=== PATIENT | female | born 1980 | race Caucasian/White ===

== ENCOUNTER 2023-10-15 21:37 | Outpatient (REF) | payer BC, SELFPAY ==
[2023-10-18 17:09] LABS: Age Gdln ACOG Testing Note (.); HPV Aptima Negative (Negative); IGP, Aptima HPV, rfx 16/18,45 Note (.)
== END 2023-10-15 21:38 | disposition home or self-care (01) ==
LOC: LAB 21:37
PROVIDERS: PCP Obstetrics & Gynecology; Visit Provider Obstetrics & Gynecology
DX: Z01.419 Encounter for gynecological examination (general) (routine) without abnormal findings (principal)
CPT/HCPCS: 87624; G0145

== ENCOUNTER 2023-10-20 10:01 | Outpatient (OUT) | payer BC, SELFPAY ==
--- NOTE | 2023-10-20 10:08 | US_ITS ---
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 Transvaginal imaging was performed. FINDINGS: UTERUS: The uterus measures 8.6 x 4.7 x 3.8 cm. There is no evidence of focal uterine masses or other significant abnormalities. There was noted to be an anterior myometrial mass on the previous exam of 10/21/2022 but this is not visualized today. The cervix shows no evidence of abnormalities. The endometrium measures 5 mm in thickness. The endometrium is uniform in thickness and echogenicity. ADNEXA: The right ovary measures 2.3 x 2.1 x 1.9 cm. The left ovary is not visualized at the time of this exam. There is no evidence of ovarian or adnexal masses. There is no other evidence of significant adnexal abnormalities. Normal vascular flow is identified of the visualized right ovary FLUID: There is no evidence of an abnormal amount of free fluid within the pelvis. ASSESSMENT: This pelvic ultrasound exam shows no evidence of significant abnormalities. It is noted that the left ovary cannot be visualized at the time of this exam. Electronically authenticated by: JOSE HILTON Date: 10/20/2023 12:45
== END 2023-10-20 10:02 | disposition home or self-care (01) ==
LOC: US 10:01
PROVIDERS: PCP Obstetrics & Gynecology; Visit Provider Obstetrics & Gynecology
DX: N80.9 Endometriosis, unspecified (principal); D25.9 Leiomyoma of uterus, unspecified; N92.0 Excessive and frequent menstruation with regular cycle
CPT/HCPCS: 76830; 76856

== ENCOUNTER 2024-06-27 10:04 | Outpatient (OUT) | payer BC, SELFPAY ==
--- OUTSIDE RECORDS SUMMARY | 2024-06-27 10:23 | XMS_ITS | CCD ---
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[employer] - [place]ACH[place] Primary Care Provider KILEY ., DR TORRES Attending Unavailable KILEY ., DR TORRES Admitting Unavailable REQUEST, DR NAIK LISTED Primary Care Unavaila ble REQUEST, DR NAIK LISTED Primary Care Unavaila ble KILEY ., DR TORRES Admitting Unavailable KILEY ., DR TORRES Attending Unavailable KILEY ., DR TORRES Consulting Unavailable MCKENNA II, KAPIL Consulting Unavailable ROMINA FUENTES Consulting Unavailable KILEY ., DR TORRES Attending Unavailable KILEY ., DR TORRES Admitting Unavailable OKAY, DR GUILLERMO Moreno Consulting Unavailable REQUEST, DR NAIK LISTED Primary Care Unavaila ble KILEY ., DR TORRES Consulting Unavailable RAHUL DAMON Referring Unavailable MIGHTKALEIGH Primary Care Unavailable MIGHT, KALEIGH Ramírez Primary Care Unavailable RAHUL DAMON Referring Unavailable Unavailable Primary Care Provider Unavaildieter e MELISSA CAO Attending Unavailable ANA DOOLEY Attending Unavailable MELISSA CAO Attending Unavailable Allergies Allergy Classification Reported Allergen(s) Allergy Type Date of Onset Reaction(s) Facility (2 sources) Alcaftadine Propensity to adverse reactions 3 Swelling [facility] Work Phone: Medications Current Medications Medication Drug Class(es) Dates Sig (Normalized) Sig (Original) ALPRAZolam 0.25 mg oral tablet (8 sources) Benzodiazepine Start: 05-18-2023 take 1 tablet by mouth once daily as needed ALPRAZolam (Xanax) 0.25 MG tablet TAKE 1 TABLET BY MOUTH NIGHTLY NEEDED FOR SLEEP FOR UP TO 90 DAYS. MAX DAILY AMOUNT: 0.25 MG 05/18/2023 Active Start: 08-08-2017 End: 02-12-2022 take 1 tablet by mouth once daily as needed for anxiety ALPRAZolam (XANAX) 0.25 MG tablet Indications: KB (generalized anxiety disorder) Take 1 tablet by mouth nightly as needed for Anxiety for up to 90 days. 90 tablet 0 11/14/2021 02/12/2022 Active aluminum chloride 200 mg/ml topical solution (5 sources) Start: 11-16-2019 aluminum chlor dixie (DRYSOL) 20 % external solution Indications: Weight gain Apply topically nightly. 3 Bottle 4 11/16/2019 Active Start: 09-08-2019 aluminum chlor dixie (DRYSOL) 20 % external solution Indications: Weight gain Apply topically nightly. 3 Bottle 4 09/08/2019 Active Start: 06-20-2016 aluminum chlor dixie (DRYSOL) 20 % external solution azithromycin 250 mg oral tablet (1 source) Macrolide Antimicrobial Start: 07-07-2021 End: 07-12-2021 azithromycin (ZITHROMAX) 250 MG tablet Indications: Bronchitis Take 1 tablet by mouth See Admin Instructions for 5 days 500mg on day 1 followed by 250mg on days 2 - 5 6 tablet 0 07/07/2021 07/12/2021 Active benzonatate 200 mg oral capsule (1 source) Non-narcotic Antitussive Start: 07-07-2021 End: 07-14-2021 take 1 capsule by mouth three times daily as needed for cough benzonatate (TESSALON) 200 MG capsule Take 1 capsule by mouth 3 times daily as needed for Cough 30 capsule 0 07/07/2021 07/14/2021 Active cetirizine hydrochloride 10 mg oral tablet (3 sources) Histamine-1 Receptor Antagonist Start: 07-06-2021 cetirizine (ZYRTEC) 10 MG tablet clobetasol propionate 0.5 mg/ml topical solution (4 sources) Corticosteroid Start: 10-16-2023 clobetasol (Temovate) 0.05 % ointment Indications: Dyshidrotic eczema Apply to hands up to twice a day when flared, do not use one the face, groin, or underarms, 90 day supply 60 g 3 10/16/2023 Active Start: 10-16-2023 clobetasol (Te movate) 0.05 % external solution Indications: Other seborrheic dermatitis Apply to scalp up to twice a day when flared, do not use one the face, groin, or underarms, 90 day supply 150 mL 3 10/16/2023 Active Coenzyme Q10 (CO Q 10 PO) (2 sources) Coenzyme Q10 (CO Q 10 PO) drospirenone 3 mg / ethinyl estradiol 0.03 mg oral tablet (6 sources) Progestin, Estrogen Start: take 1 tablet by mouth once daily drospirenone-ethinyl estradiol (GAUDENCIO 28) 3-0.03 MG TABS Indications: Menorrhagia with regular cycle , Secondary dysmenorrhea Take 1 tablet by mouth daily 3 packet 4 10/12/2021 Active Start: 09-09-2020 take 1 tablet by mariel th once daily drospirenone-ethinyl estradiol (GAUDENCIO 28) 3-0.03 MG TABS Indications: Menorrhagia with regular cycle , Secondary dysmenorrhea Take 1 tablet by mouth daily 3 packet 4 09/09/2020 Active Start: 09-08-2019 take 1 tablet by mariel th once daily drospirenone-ethinyl estradiol (GAUDENCIO 28) 3-0.03 MG TABS Indications: Menorrhagia with regular cycle , Secondary dysmenorrhea Take 1 tablet by mouth daily 3 packet 4 09/08/2019 Active FLUoxetine 20 mg oral capsule (2 sources) Serotonin Reuptake Inhibitor take 1 capsule by mouth once daily FLUoxetine (PROzac) 20 MG capsule Take 20 mg by mouth Daily Active 12 hr guaiFENesin 600 mg extended release oral tablet (1 source) Start: 2020 End: 2020 take 2 tablets by mouth twice daily guaiFENesin (MUCINEX) 600 MG extended release tablet Take 2 tablets by mouth 2 times daily for 10 days 40 tablet 0 07/07/2021 07/17/2021 Active hydroCHLOROthiazide 25 mg / triamterene 37.5 mg oral tablet (4 sources) Potassium-sparing Diuretic, Thiazide Diuretic Start: 2018 triamterene-hydrochl orothiazide (MAXZIDE-25) 37.5-25 MG per tablet TAKE ONE-HALF (1/2) TABLET DAILY 45 tablet 4 07/14/2019 Active hydrocortisone 25 mg/ml topical cream (2 sources) Corticosteroid Start: 2023 hydrocortisone 2.5 % cream Indications: Other seborrheic dermatitis Apply to face bid prn for flares, hold when clear/90 day supply 90 g 3 10/16/2023 Active ipratropium bromide 0.021 mg/actuat metered dose nasal spray (1 source) Anticholinergic Start: 2020 ipratropium (ATROVENT) 0.03 % nasal spray ketoconazole 20 mg/ml topical cream (2 sources) Azole Antifungal Start: 2023 ketoconazole (NIZOral) 2 % cream Indications: Tinea versicolor Apply to rash on chest BID until clear then prn for flares/90 day supply 180 g 3 10/16/2023 Active MAGNESIUM-ZINC PO (2 sources) MAGNESIUM-ZINC P O Take by mouth 0 Active montelukast 10 mg oral tablet (3 sources) Leukotriene Receptor Antagonist Start: 2023 take 1 tablet by mouth at bedtime montelukast (Singulair) 10 MG tablet Take 10 mg by mouth at bedtime 05/13/2024 Active Start: 11-14-2021 take 1 tablet by mariel th once daily montelukast (SINGULAIR) 10 MG tablet Indications: Chronic allergic rhinitis Take 1 tablet by mouth nightly 90 tablet 3 11/14/2021 Active Multiple Vitamin-Folic Acid tablet (2 sources) Multiple Vitamin -Folic Acid tablet Multiple Vitamin Active Multiple Vitamins-Minerals (MULTIVITAMIN PO) (6 sources) Multiple Vitamins-Minerals (MULTIVITAMIN PO) Indications: Routine gynecological examination Take by mouth. 0 Active sertraline 50 mg oral tablet (6 sources) Serotonin Reuptake Inhibitor Start: 09-22-2022 sertraline (ZOLOFT) 50 MG tablet Indications: Encounter for gynecological examination without abnormal finding , Mild depression TAKE 1 TABLET DAILY 90 tablet 3 09/22/2022 Active Start: 10-12-2021 take 1 tablet by mariel th once daily for depression sertraline (ZOLOFT) 50 MG tablet Indications: Encounter for gynecological examination without abnormal finding , Mild depression (HCC) Take 1 tablet orally daily 90 tablet 3 10/12/2021 Active Start: 09-09-2020 sertraline (ZO LOFT) 50 MG tablet Indications: Encounter for gynecological examination without abnormal finding , Mild depression (HCC) TAKE 1 TABLET DAILY 90 tablet 3 09/09/2020 Active Start: 09-08-2019 sertraline (ZO LOFT) 50 MG tablet Indications: Encounter for gynecological examination without abnormal finding , Mild depression (HCC) TAKE 1 TABLET DAILY 90 tablet 3 09/08/2019 Active SUMAtriptan 25 mg oral tablet (2 sources) Serotonin-1b and Serotonin-1d Receptor Agonist SUMAtriptan (Imitrex ) 25 MG tablet every 12 (twelve) hours Active triamcinolone acetonide 0.25 mg/ml topical cream (3 sources) Corticosteroid Start: 09-29-2019 triamcinolone (KENALOG) 0.025 % cream Apply topically 2 times daily. 1 g 3 09/29/2019 Active Problems Active Problems Problem Classification Problem Date Documented Date Episodic/Chronic Abdominal pain (1 source) Pain in female pelvis; Translations: [Pelvic and perineal pain] 06-09-2024 Episodic Anxiety disorders (2 sources) Generalized anxiety disorder; Translations: [Generalized anxiety disorder] Onset: 11-14-2021 11-14-2021 Chronic Chronic obstructive pulmonary disease and bronchiectasis (1 source) Bronchitis; Translations: [Bronchitis, not specified as acute or chronic] Episodic Contraceptive and procreative management (1 source) Encounter for sterilization; Translations: [ENCOUNTER FOR STERILIZATION] Onset: 01-16-2023 Episodic Disorders of lipid metabolism (2 sources) Dyslipidemia; Translations: [Hyperlipidemia, unspecified] Onset: 11-14-2021 11-14-2021 Chronic Endometriosis (2 sources) Endometriosis (clinical); Translations: [Endometriosis, unspecified] Onset: 10-15-2023 10-15-2023 Chronic Menstrual disorders (7 sources) Excessive and frequent menstruation with regular cycle; Translations: [Menorrhagia] Onset: 12-06-2022 Chronic Other female genital disorders (1 source) Abnormal uterine and vaginal bleeding, unspecified; Translations: [ABNORMAL UTERINE VAGINAL BLEED UNS] Onset: 01-16-2023 Chronic Other female genital disorders (1 source) Pain in female genitalia on intercourse; Translations: [Unspecified dyspareunia] 06-09-2024 Chronic Other screening for suspected conditions (not mental disorders or infectious disease) (2 sources) Patient encounter status; Translations: [Encounter for screening mammogram for malignant neoplasm of breast] Onset: 04-26-2023 Episodic Other upper respiratory disease (2 sources) Allergic rhinitis; Translations: [Allergic rhinitis, unspecified] Onset: 09-24-2021 09-24-2021 Chronic Other upper respiratory infections (1 source) Pharyngitis; Translations: [Acute pharyngitis, unspecified] Episodic Ovarian cyst (1 source) Other ovarian cyst, left side; Translations: [OTHER OVARIAN CYST LEFT SIDE] Onset: 01-16-2023 Episodic Unclassified (3 sources) Patient encounter status; Translations: [Encounter for annual routine gynecological examination] Past or Other Problems Problem Classification Problem Date Documented Da te Episodic/Chronic Benign neoplasm of uterus (2 sources) Uterine leiomyoma; Translations: [Leiomyoma of uterus, unspecified] Onset: 10-15-2023 10-15-2023 Episodic Results Test Name Value Interpretation Reference Range Facility [facility] DIGITAL SCREEN SELF REFERRAL W OR WO CAD BILATERALon 04-26-2023 [facility] DIGITAL SCREEN SELF REFERRAL W OR WO CAD BILATERAL EXAMINATION: SCREENING DIGITAL BILATERAL MAMMOGRAM WITH TOMOSYNTHESIS, 04/26/2023 TECHNIQUE: Screening mammography of the bilateral breasts was performed with tomosynthesis. 2D standard and 3D tomosynthesis combination imaging performed through both breasts in the MLO and CC projection. Computer aided detection was utilized in the interpretation of this exam. COMPARISON: 14 December 2021; 03 November 2020 HISTORY: Screening. No family history of breast cancer. No hormonal replacement therapy or breast interventions. FINDINGS: Breasts are composed of heterogeneously dense parenchyma. No skin thickening, nipple contour changes, suspicious calcifications, suspicious masses, areas of architectural distortion or significant interval changes are noted. Benign-appearing calcifications are present in both breasts. IMPRESSION: No evidence of malignancy. Advise annual screening mammography. BREAST DENSITY SUMMARY C: The breasts are heterogeneously dense which may obscure small masses. BI-RADS 2 BIRADS: BIRADS - CATEGORY 2 Benign Findings. Normal interval follow-up is recommended in 12 months. OVERALL ASSESSMENT - BENIGN A letter of notification will be sent to the patient regarding the results. The [employer] recommends annual mammograms for women 40 years and older. Interpreted by: Ofe Steiner MD Signed by: Ofe Steiner MD 04/26/23 Recipients: Melissa Cao MD - Mail Final result Normal [facility] CBC AUTO DIFFon 12-15-2022 BASO # 0.1 103/ul Normal 0.0-0.[address] [facility] Comment on above: Performed By: #### C BC ####[facility] [address] [place] [address]Dr. Charis Knox Basophils/100 WBC (Bld) 0.6 % Normal 0.2-2.0 [facility] Comment on above: Performed By: #### C BC ####[facility] [address] [place] [address]Dr. Charis Knox EO # 0.4 103/ul Normal 0.0-0.[address] [facility] Comment on above: Performed By: #### C BC ####[facility] [address] [place] [address]Dr. Charis Knox Eosinophils/100 WBC (Bld) 3.3 % Normal 0.9-7.0 [facility] Comment on above: Performed By: #### C BC ####[facility] [address] [place] [address]Dr. Charis Knox Erythrocyte distribution width (RBC) [Ratio] 13.6 % Normal 11.0-15.[address] [facility] Comment on above: Performed By: #### C BC ####[facility] [address] [place] [address]Dr. Charis Knox Hematocrit (Bld) [Volume fraction] 39.9 % Normal 36.0-48.0 [facility] Comment on above: Performed By: #### C BC ####[facility] [address] [place] [address]Dr. Charis Knox Hemoglobin (Bld) [Mass/Vol] 12.9 g/dL Normal 12.0-16.[address] [facility] Comment on above: Performed By: #### C BC ####[facility] [address] [place], [place] [id number]. Charis Knox IG # 0.09 10e3/ul Critically high 0.00-0.03 [facility] Comment on above: Performed By: #### C BC ####[facility] [address] [place] [address]Dr. Charis Knox IG % 0.8 % Critically high 0.0-0.5 [facility] Comment on above: Performed By: #### C BC ####[facility] [address] [place], [place] [address]Dr. Charis Abilio LYMPH # 3.0 103/ul Normal 1.2-3.8 [facility] Comment on above: Performed By: #### C BC ####[facility] [address] [place], [place] [address]DrJarek Melindaomer Knox Lymphocytes/100 WBC (Bld) 27.8 % Normal 20.5-60.[address] [facility] Comment on above: Performed By: #### C BC ####[facility] [address] [place], [place] [address]DrJarek Charis Abilio MANUAL DIFF REQ NO Normal [facility] Comment on above: Performed By: #### C BC ####[facility] [address] [place], [place] [address]Dr. Charis Knox MCH (RBC) [Entitic mass] 27.5 pg Normal 26.7-34.0 [facility] Comment on above: Performed By: #### C BC ####[facility] [address] [place], [place] [address]DrJarek Charis Knox MCHC (RBC) [Mass/Vol] 32.3 g/dL Normal 29.9-35.2 [facility] Comment on above: Performed By: #### C BC ####[facility] [address] [place], [place] [address]DrJarek Charis Abilio MCV (RBC) [Entitic vol] 85.1 fL Normal 81.0-99.0 [facility] Comment on above: Performed By: #### C BC ####[facility] [address] [place], [place] [address]Dr. Charis Knox MONO # 0.9 103/ul Critically high 0.3-0.8 [facility] Comment on above: Performed By: #### C BC ####[facility] [address] [place] [address]Dr. Charis Knox Monocytes/100 WBC (Bld) 8.5 % Normal 1.7-12.0 [facility] Comment on above: Performed By: #### C BC ####[facility] [address] [place] [address]Dr. Charis Knox NEUT # 6.3 103/ul Normal 1.4-6.5 [facility] Comment on above: Performed By: #### C BC ####[facility] [address] [place] [address]Dr. Charis Knox Neutrophils/100 WBC (Bld) 59.0 % Normal 43.0-75.0 [facility] Comment on above: Performed By: #### C BC ####[facility] [address] [place] [address]Dr. Charis Knox Platelet mean volume (Bld) [Entitic vol] 9.8 fL Normal 9.5-13.5 [facility] Comment on above: Performed By: #### C BC ####[facility] [address] [place] [address]Dr. Charis Knox PLT 291 103/ul Normal 150-450 [facility] Comment on above: Performed By: #### C BC ####[facility] [address] [place] [address]Dr. Charis Knox RBC 4.69 106/ul Normal 4.20-5.40 [facility] Comment on above: Performed By: #### C BC ####[facility] [address] [place] [address]Dr. Charis Knox WBC 10.8 103/ul Normal 4.0-11.0 [facility] Comment on above: Performed By: #### C BC ####[facility] [address] [place], [place] [address]Dr. Charis Abilio POINT OF CARE GLUCOSEon 04-2 8-2023 Glucose [Mass/Vol] 94 mg/dL Normal 74-106 [facility] Comment on above: Performed By: #### P OCGLUC #### [facility] [address] [place] [address] Dr. Charis Knox PREG QUANT HCGon 12-15-2022 HCG QUANT <[address] [facility] Comment on above: Performed By: #### P REGQNT #### [facility] [address] [address] [address] Charis Knox HCG RANGE SEE BELOW Normal [facility] Comment on above: Result Comment: 5-50 0.2-1 WEEK 50-500 1-2 WEEKS 100-5,000 2-3 WEEKS 500-10,000 3-4 WEEKS 1,000-50,000 4-5 WEEKS 10,000-100,000 5-6 WEEKS 15,000-200,000 6-8 WEEKS 10,000-100,000 2-3 MONTHS Performed By: #### P REGQNT #### [facility] [address] [place] [address] Dr. Charis Knox CBC AUTO DIFFon 10-21-2022 BASO # 0.1 103/ul Normal 0.0-0.[address] [facility] Comment on above: Performed By: #### C BC ####[facility] [address] [place] [address]DrJarek Knox Basophils/100 WBC (Bld) 0.6 % Normal 0.2-2.[address] [facility] Comment on above: Performed By: #### C BC ####[facility] [address] [place] [address]DrJarek Knox EO # 0.2 103/ul Normal 0.0-0.[address] [facility] Comment on above: Performed By: #### C BC ####[facility] [address] [place] [address]DrJarek Knox Eosinophils/100 WBC (Bld) 2.2 % Normal 0.9-7.[address] [facility] Comment on above: Performed By: #### C BC ####[facility] [address] [place] [address]Dr. Charis Knox Erythrocyte distribution width (RBC) [Ratio] 13.5 % Normal 11.0-15.[address] [facility] Comment on above: Performed By: #### C BC ####[facility] [address] [place] [address]Dr. Charis Knox Hematocrit (Bld) [Volume fraction] 40.0 % Normal 36.0-48.0 [facility] Comment on above: Performed By: #### C BC ####[facility] [address] [place], [place] [address]Dr. Charis Knox Hemoglobin (Bld) [Mass/Vol] 13.0 g/dL Normal 12.0-16.[address] [facility] Comment on above: Performed By: #### C BC ####[facility] [address] [place], [place] [address]Dr. Melindaomer Knox IG # 0.08 10e3/ul Critically high 0.00-0.03 [facility] Comment on above: Performed By: #### C BC ####[facility] [address] [place], [place] [address]Dr. Charis Knox IG % 0.8 % Critically high 0.0-0.5 [facility] Comment on above: Performed By: #### C BC ####[facility] [address] [place], [place] [address]Dr. Melindaomer Knox LYMPH # 2.4 103/ul Normal 1.2-3.8 [facility] Comment on above: Performed By: #### C BC ####[facility] C[address] [place], [place] [address]Dr. Melindaomer Knox Lymphocytes/100 WBC (Bld) 24.0 % Normal 20.5-60.0 [facility] Comment on above: Performed By: #### C BC ####[facility] [address] [place], [place] [address]Dr. Melindaomer Knox MANUAL DIFF REQ NO Normal [facility] Comment on above: Performed By: #### C BC ####[facility] [address] [place], [place] [address]Dr. Charis Knox MCH (RBC) [Entitic mass] 26.7 pg Normal 26.7-34.0 [facility] Comment on above: Performed By: #### C BC ####[facility] [address] [place] [address]Dr. Charis Knox MCHC (RBC) [Mass/Vol] 32.5 g/dL Normal 29.9-35.2 [facility] Comment on above: Performed By: #### C BC ####[facility] [address] [place] [address]Dr. Charis Knox MCV (RBC) [Entitic vol] 82.3 fL Normal 81.0-99.0 [facility] Comment on above: Performed By: #### C BC ####[facility] [address] [place], [place] [address]Dr. Charis Abilio MONO # 0.6 103/ul Normal 0.3-0.8 [facility] Comment on above: Performed By: #### C BC ####[facility] [address] [place], [place] [address]Dr. Charis Abilio Monocytes/100 WBC (Bld) 6.4 % Normal 1.7-12.0 [facility] Comment on above: Performed By: #### C BC ####[facility] [address] [place], [place] [address]Dr. Charis Knox NEUT # 6.5 103/ul Normal 1.4-6.5 [facility] Comment on above: Performed By: #### C BC ####[facility] [address] [place], [place] [address]Dr. Charis Abilio Neutrophils/100 WBC (Bld) 66.0 % Normal 43.0-75.0 [facility] Comment on above: Performed By: #### C BC ####[facility] [address] [place], [place] [address]Dr. Charis Abilio Platelet mean volume (Bld) [Entitic vol] 9.8 fL Normal 9.5-13.5 [facility] Comment on above: Performed By: #### C BC ####[facility] [address] [place] [id number]. Charis Knox PLT 329 103/ul Normal 150-450 [facility] Comment on above: Performed By: #### C BC ####[facility] [address] [place] [id number]. Charis Knox RBC 4.86 106/ul Normal 4.20-5.40 [facility] Comment on above: Performed By: #### C BC ####[facility] [address] [place] [address]Dr. Charis Knox WBC 9.9 103/ul Normal 4.0-11.0 [facility] Comment on above: Performed By: #### C BC ####[facility] [address] [place] [address]DrJarek Knox FREE T4on 10-21-2022 Free T4 [Mass/Vol] 0.91 ng/dL Normal 0.76-1.46 [facility] Comment on above: Performed By: #### F T4 #### [facility] [address] [address] [address] Charis Knox GLYCOHEMOGLOBIN A1Con 2022 ADA RECOMMENDATION SEE BELOW Normal [facility] Comment on above: Result Comment: ADA RECOMMENDED LIMIT 4.0 - 6.0 ADA THERAPEUTIC TARGET < 7.0 ACTION SUGGESTED > 7.0 Performed By: #### A 1C ####[facility] [address] [place] [address]Dr. Charis Knox Glucose [Mass/Vol] 117 mg/dL Normal [facility] Comment on above: Performed By: #### A 1C ####[facility] [address] [place] [address]DrJarek Knox HbA1c (Bld) [Mass fraction] 5.7 % Normal 4.5-6.2 [facility] Comment on above: Performed By: #### A 1C ####[facility] [address] [place] [address]Dr. Charis Knox PREG QUANT HCGon 10-21-2022 HCG QUANT <1 Normal [facility] Comment on above: Performed By: #### T SH, PREGQNT #### [facility] [address] [place] [address] Dr. Charis Knox HCG RANGE SEE BELOW Normal [facility] Comment on above: Result Comment: 5-50 0.2-1 WEEK 50-500 1-2 WEEKS 100-5,000 2-3 WEEKS 500-10,000 3-4 WEEKS 1,000-50,000 4-5 WEEKS 10,000-100,000 5-6 WEEKS 15,000-200,000 6-8 WEEKS 10,000-100,000 2-3 MONTHS Performed By: #### T SH, PREGQNT #### [facility] [address] [place] [address] Dr. Charis Knox PROTIMEon 10-21-2022 INR Coag (PPP) [Relative time] {INR} Normal [facility] Comment on above: Performed By: #### P TT, PT #### [facility] [address] [place] [address] Dr. Charis Knox INR GUIDELINES SEE BELOW Normal [facility] Comment on above: Result Comment: HEATHER RED INR: 2.0 - 3.0 CONDITIONS NOT LISTED BELOW 2.5 - 3.5 FOR PROSTHETIC HEART VALVE REPLACEMENT 2.5 - 3.5 RECURRENT THROMBOSIS Performed By: #### P TT, PT #### [facility] [address] [place] [address] Dr. Charis Knox PT Coag (PPP) [Time] 9.8 s Normal 9.0-11.6 [facility] Comment on above: Performed By: #### P TT, PT #### [facility] Laboratory [address] [place] [address] Dr. Charis Knox PTTon 10-21-2022 aPTT Coag (Bld) [Time] 26.2 s Normal 22.3-36.[address] [facility] Comment on above: Performed By: #### P TT, PT #### [facility] [address] [place] [address] Dr. Charis Knox TSHon 10-21-2022 TSH 0.966 uIU/mL Normal 0.358-3.740 [facility] e Hospital Comment on above: Performed By: #### T SH, PREGQNT #### [facility] [address] [place], [place] [address] Dr. Charis Knox US PELVIS AND TRANSVAGon US PELVIS AND TRANSVAG EXAMINATION: US PELVIS AND TRANSVAG HISTORY: Excessive and frequent menstruation COMPARISON: No relevant comparison available. FINDINGS: Transabdominal and transvaginal images The uterus is normal in size and contour measuring 8.0 x 3.5 x 4.4 cm. Anteverted, anteflexed. Heterogeneous echotexture with anterior myometrial mass measuring 1.2 x 0.8 x 1.3 cm. The endometrium measures 3 mm, normal. The right ovary is normal in appearance measuring 2.0 x 1.6 x 1.3 cm. Normal color and Doppler flow. The left ovary is normal in appearance measuring 1.7 x 1.2 x 2.0 cm. Normal color and Doppler flow IMPRESSION: Heterogeneous myometrium with 1.3 cm mass, a fibroid is favored Electronically authenticated by: GUILLERMO JOSEPH Date: 2022-10-21 18:[address] [facility] Cytologyon 10-12-2022 Cytology (NOTE) INTERPRETATION Cervical material, (ThinPrep vial, Imaging-assisted review): Specimen Adequacy: Satisfactory for evaluation. - Endocervical/transf ormation zone component present. Descriptive Diagnosis: Negative for intraepithelial lesion or malignancy. Adobe Layer Helper: Yoandy Campo Electronically Signed Out 10/26/2022 Source: A: Cervical material, (ThinPrep vial, Imaging-assisted review) Clinical History Contraceptive use Z01.419 Routine pharmacy technician assistant exam without abnormal findings High risk HPV DNA testing is requested if the diagnosis is abnormal GYNECOLOGIC CYTOLOGY REPORT Patient Name: DENISE GAITAN [facility] Rec: [id number] Path Number: [id number] [employer] [facility] [employer] [facility] [address] [place] [phone] Normal [facility] Comment on above: Performed By: #### P PPVP #### [facility] [address] [place] [id number] Neon Sign Servicer: Antolin Vogel MD [facility] SHARAD DIGITAL SCREEN BILA TERALon 12-14-2021 No evidence of malignancy. Advise annual screening mammography. BREAST DENSITY SUMMARY C: The breasts are heterogeneously dense which may obscure small masses. BI-RADS 2 BIRADS: BIRADS - CATEGORY 2 Benign Findings. Normal interval follow-up is recommended in 12 months. OVERALL ASSESSMENT - BENIGN A letter of notification will be sent to the patient regarding the results. The [employer] recommends annual mammograms for women 40 years and older. [facility] EXAMINATION: SCREENING DIGITAL BILATERAL MAMMOGRAM WITH TOMOSYNTHESIS, 12/14/2021 TECHNIQUE: Screening mammography was performed with tomosynthesis including MLO and CC views of the bilateral breasts. Computer aided detection was used for the interpretation of this exam. COMPARISON: 03 November 2020; 30 August 2016 HISTORY: Screening. Negative family history of breast cancer. Multiple year history of oral contraceptive usage. Negative history of hormonal replacement therapy. No prior breast interventions. FINDINGS: The breast parenchyma is heterogeneously dense which can obscure small masses. No skin thickening, nipple contour changes, malignant type microcalcifications , areas of architectural distortion, or significant interval changes are noted. Benign appearing punctate calcifications are redemonstrated in the breast. [facility] Radiology Study observation (narrative) [employer] Phone: [facility] SHARAD DIGITAL SCREEN BILA TERALOrdered By: Ofe Obdulia on 12-14-2021 [employer] Phone: [facility] SHARAD DIGITAL SCREEN BILA TERALon 11-04-2020 Benign findings. BI-RADS 2 BIRADS: BIRADS - CATEGORY 2 Benign, no evidence of malignancy. Normal interval follow-up is recommended in 12 months. OVERALL ASSESSMENT - BENIGN A letter of notification will be sent to the patient regarding the results. [employer] recommends annual mammograms for women 40 years and older. [employer] Phone: EXAMINATION: SCREENING DIGITAL BILATERAL MAMMOGRAM WITH TOMOSYNTHESIS, 11/03/2020 TECHNIQUE: Screening mammography was performed with tomosynthesis including MLO and CC views of the bilateral breasts. Computer aided detection was used for the interpretation of this exam. COMPARISON: 08/30/2016 HISTORY: Screening. FINDINGS: The breast tissue is heterogeneously dense. There is no suspicious mass, suspicious microcalcification, or area of architectural distortion. Stable small round mass or lymph node in the lateral left breast. Benign punctate calcifications again noted bilaterally. [employer] Phone: Lee, Mhpn Incoming Radiant Results From [employer] - 11/04/2020 9:19 AM EDT EXAMINATION: SCREENING DIGITAL BILATERAL MAMMOGRAM WITH TOMOSYNTHESIS, 11/03/2020 TECHNIQUE: Screening mammography was performed with tomosynthesis including MLO and CC views of the bilateral breasts. Computer aided detection was used for the interpretation of this exam. COMPARISON: 08/30/2016 HISTORY: Screening. FINDINGS: The breast tissue is heterogeneously dense. There is no suspicious mass, suspicious microcalcification, or area of architectural distortion. Stable small round mass or lymph node in the lateral left breast. Benign punctate calcifications again noted bilaterally. IMPRESSION: Benign findings. BI-RADS 2 BIRADS: BIRADS - CATEGORY 2 Benign, no evidence of malignancy. Normal interval follow-up is recommended in 12 months. OVERALL ASSESSMENT - BENIGN A letter of notification will be sent to the patient regarding the results. [employer] recommends annual mammograms for women 40 years and older. [employer] Phone: Vital Signs Date Time Vital Sign Value Performing Clinician Puneet mcmullen 06-09-2024 10:27-0400 Body mass index (BMI) [Ratio] 51.09 kg/m2 B-152 Phone: [facility] [employer] 06-09-2024 10:27-0400 Body weight 130.82 kg B-152 Phone: [facility] [employer] 06-09-2024 10:27-0400 Diastolic blood pressure 72 mm[Hg] B-152 Phone: [facility] [employer] 06-09-2024 10:27-0400 Systolic blood pressure 122 mm[Hg] B-152 Phone: [facility] Healthcare Encounters Encounter Date Encounter Type Care Provider Facility Start: 06-09-2024 End: 06-09-2024 Bamboo flowsheet Melissa Kiley DO Work Phone: [facility] Start: 06-09-2024 End: 06-09-2024 Bamboo flowsheet Melissa Kiley DO Work Phone: [facility] Start: 06-09-2024 End: 06-09-2024 Office outpatient visit 15 minutes Melissa Kiley DO Work Phone: [facility] Comment on above: Pre-op examination; Menorrhagia with regular cycle; Pelvic pain in female; Dyspareunia in female; Dysmenorrhea Start: 06-09-2024 End: 06-09-2024 Preprocedural examination done Melissa Kiley DO Work Phone: [facility] Start: 06-09-2024 End: 06-09-2024 ambulatory MELISSA KILEY Not Available Start: 10-16-2023 End: 10-16-2023 ambulatory ANA DOOLEY Not Available Start: 10-15-2023 End: 10-15-2023 ambulatory MELISSA KILEY Not Available Start: 09-25-2023 Chart abstracting Melissa Kiley DO Work Phone: [facility] Start: 04-26-2023 End: 04-29-2023 [facility] Start: 12-15-2022 End: 12-15-2022 ambulatory NONE LISTED REQUEST Facility:[facility] Start: 12-06-2022 Encounter for other preprocedural examination DR MELISSA CAO . [facility] Start: 11-30-2022 End: 12-01-[address] MELISSA CAO . Facility:[facility] Start: 11-30-2022 End: 12-01-2022 Encounter for other preprocedural examination DR MELISSA CAO . Facility:[facility] Start: 10-21-2022 End: 10-22-[address] MELISSA CAO . Facility:[facility] Start: 10-12-2022 End: 10-13-2022 ambulatory [facility] DAM[facility] Start: 10-12-2022 Encounter for gynecological examination (general) (routine) without abnormal findings RAHUL DAMON [facility] Start: 10-12-2022 End: 10-12-2022 Patient encounter procedure Kaleigh Verónica [employer] Work Phone: [facility] Laboratory Start: 10-12-2022 End: 10-12-2022 Subsequent hospital visit by physician Kaleigh James [employer] Work Phone: [facility] Laboratory Comment on above: Women's annual routi ne gynecological examination Start: 12-14-2021 End: 12-16-2021 Subsequent hospital visit by physician [facility] Mammography Room At [facility] Mammography Comment on above: Encounter for screen ing mammogram for breast cancer Start: 07-07-2021 End: 07-07-2021 [facility] Covid Screening Comment on above: Pharyngitis, unspeci fied etiology; Bronchitis Start: 11-03-2020 End: 11-05-2020 Subsequent hospital visit by physician [facility] Mammography Room At [facility] Mammography Comment on above: Screening mammogram, encounter for Start: 09-09-2020 End: 09-09-2020 Subsequent hospital visit by physician Javier Dawson [facility] Laboratory Comment on above: Encounter for annual routine gynecological examination Start: 09-08-2019 End: 09-08-2019 Subsequent hospital visit by physician Javier Dawson MD Work Phone: [facility] Laboratory Comment on above: Women's annual routi ne gynecological examination Procedures Date Procedure Procedure Detail Performing Clinician Start: 12-14-2021 Screening mammograph y bi 2-view breast inc cad Rahul Damon MD Work Phone: Start: 10-10-2021 Microscopic observat ion [Identifier] in Cervix by Cyto stain [facility] Start: 11-03-2020 Screening mammograph y bi 2-view breast inc cad Rahul Damon Work Phone: Start: 09-09-2020 Microscopic observat ion [Identifier] in Cervix by Cyto stain [facility] Schedule Plan of Treatment Date Care Activity Detail Author Start: 11-18-2026 Lipid panel Lipids [facility] Start: 12-15-2025 DTaP/Tdap/Td vaccine (2 - Td or Tdap) DTaP/Tdap/Td vaccine (2 - Td or Tdap) [facility] Start: 08-03-2025 DTaP/Tdap/Td vaccine (2 - Td) DTaP/Tdap/Td vaccine (2 - Td) [facility] Work Phone: Start: 10-21-2024 End: 10-21-2024 Patient encounter procedure 10/21/2024 3:10 PM EST Office Visit [facility] [address] [place] [phone] Ana Dooley PA [address] [place] [address] [facility] Start: 10-20-2024 End: 10-20-2024 Patient encounter procedure 10/20/2024 10:00 AM EST Office Visit [facility] [address] [place] [address] Melissa Cao, DO [address] [place] [address] [facility] Start: 10-10-2024 Screening for malign ant neoplasm of cervix [facility] Start: 06-09-2024 End: 06-09-2024 Patient encounter procedure 06/09/2024 10:10 AM EDT Consult [facility] [address] [place] [address] Melissa Cao, DO [address] [place] [address] Arrived [facility] Comment on above: Arrived Start: 10-16-2023 End: 10-16-2023 Patient encounter procedure 10/16/2023 4:20 PM EST Office Visit [facility] [address] [place] [address] Ana Dooley PA [address] [place] [address] [facility] Start: 10-15-2023 End: 10-15-2023 Patient encounter procedure 10/15/2023 8:30 AM EST Office Visit [facility] [address] [phone] Melissa Cao, DO [address] [place] [address] [facility] Start: 09-09-2023 Screening for malign ant neoplasm of cervix [facility] Start: 11-15-2022 End: 11-15-2022 Patient encounter procedure 11/15/2022 Office Visit Primary Care Kaleigh James, [employer] [address] [facility] [place] [address] [facility] Start: 11-14-2022 COVID-19 Vaccine (#1) COVID-19 Vacci ne (#1) [facility] Comment on above: Postponed from 10/17 (Not Indicated) Start: 11-14-2022 COVID-19 Vaccine (1) COVID-19 Vaccin e (1) [facility] Comment on above: Postponed from 04/16 (Not Indicated) Start: 11-14-2022 Depression Monitoring Depression [facility] Start: 11-14-2022 Depression Screen Depression Screen [facility] Start: 11-14-2022 Hepatitis C screening Hepatitis C sc [facility] Comment on above: Postponed from 04/16 (Patient Refused) Start: 11-14-2022 HIV screening HIV screen [facility] Comment on above: Postponed from 04/16 (Patient Refused) Start: 11-14-2022 Influenza vaccination Flu vacc ine (Season Ended) [facility] Comment on above: Postponed from 04/20 (Patient Refused) Start: 09-08-2022 Screening for malign ant neoplasm of cervix [facility]erv[facility] [place] [place] Start: 03-20-2022 Influenza vaccination Flu vaccine (# 1) [facility] Start: 08-15-2021 Cervical cancer screen Cervical canc er screen [facility] Phone: Start: 04-20-2021 Influenza vaccination Flu vaccine (# 1) [facility] Start: 04-20-2020 Influenza vaccination Flu vaccine (# 1) [employer] [place] Start: 2020 Lipid panel Lipid screen [facility] Start: 04-20-2019 Influenza vaccination Flu vaccine (# 1) [facility] Work Phone: Start: 12-19-2018 A1C test (Diabetic o r Prediabetic) A1C test (Diabetic or Prediabetic) [employer] Phone: Start: 12-19-2018 Creatinine measurement Creatinine mo nitoring [facility] Start: 12-19-2018 Creatinine monitoring Creatinine mon itoring [employer] Phone: Start: 12-19-2018 HbA1c (Bld) [Mass fraction] A1C test (Diabetic or Prediabetic) [facility] [place] Start: 12-19-2018 Hemoglobin A1c measurement A1C test (Diabetic or Prediabetic) [facility] Start: 12-19-2018 Potassium monitoring Potassium monit oring [facility] Start: 2010 Screening for malign ant neoplasm of cervix HPV (without or with Pap) [facility] Start: 1995 HIV screen HIV screen [facility] Work Phone: Start: 1995 HIV screening HIV screen [facility] Start: 1985 COVID-19 Vaccine (1) COVID-19 Vaccin e (1) [facility] Start: 1981 Varicella vaccine (1 of 2 - 2-dose childhood series) Varicella vaccine (1 of 2 - 2-dose childhood series) [facility] Start: 1980 Hepatitis C screening Hepatitis C sc reen [facility] End: 07-07-2021 COVID-19 [facility] Work Phone: Comment on above: 1 Occurrences starti ng 07/07/2021 until 07/07/2021 End: 09-09-2020 Cytopathology procedure, preparation of smear, genital source [facility] Lab Routine Encounter for annual routine gynecological examination 1 Occurrences starting 09/09/2020 until 09/09/2020 [facility] [place] Comment on above: 1 Occurrences starti ng 09/09/2020 until 09/09/2020 End: 09-08-2019 Cytopathology procedure, preparation of smear, genital source PAP SMEAR Lab Routine Women's annual routine gynecological examination 1 Occurrences starting 09/08/2019 until 09/08/2019 [facility] Work Phone: Comment on above: 1 Occurrences starti ng 09/08/2019 until 09/08/2019 End: 10-12-2022 Cytopathology procedure, preparation of smear, genital source PAP SMEAR Lab Routine Women's annual routine gynecological examination 1 Occurrences starting 10/12/2022 until 10/12/2022 Y[facility] JAVIER [facility] Work Phone: Comment on above: 1 Occurrences starti ng 10/12/2022 until 10/12/2022 Immunizations Immunization Date Immunization Notes Care Provider Emmanuel sosa 08-03-2015 tetanus toxoid, redu hollie diphtheria toxoid, and acellular pertussis vaccine, adsorbed Javier Dawson MD Work Phone: [facility] 06-09-2009 novel influenza-H1N1 -09, preservative-free, injectable [facility] Payers Date Payer Category Payer [facility] BCBS [id number] 2021 Unknown BCBS BCBS xxxxxx [id number] 2021-Present [phone] [address] [place] [address] [id number] 2016 Unknown [employer] [address] xxxxxxxxxxxx 2016-Present [phone] [address] [place] [address] xxxxxxxxxxxx [id number] 1980 Unknown [id number] 593 1980 Unknown [id number] 593 1980 Unknown [id number] 593 1980 Unknown [id number] 173 1980 Unknown [id number] 173 1980 Unknown [id number] 1259 1980 Unknown [id number] 1259 1980 Unknown [id number] 1259 1959 Unknown [id number] Social History Date Type Detail Facility Start: 06-13-2017 End: 09-09-2020 Tobacco smoking status GAIS Never smoker [facility] Work Phone: Start: 09-09-2020 End: 10-16-2023 Tobacco use and exposure Never used [facility]- [place] Start: 09-09-2020 End: 10-12-2022 Alcohol intake Current drinker of alcohol (finding) [facility] Work Phone: Start: 1980 Sex Assigned At Not on file [facility] [employer] Phone: Start: 1980 Sex Assigned At Female M [facility] [employer] Start: 09-25-2023 End: 10-16-2023 Tobacco smoking status NHIS Ex-smoker [facility] History of tobacco use Current smoker [facility] History of tobacco use Cigarette Smoker [facility] Start: 09-25-2023 End: 06-09-2024 Alcohol intake Lifetime non-drinker (finding) [facility] Start: 09-25-2023 End: 10-17-2023 History of Social function [facility] Start: 09-25-2023 End: 10-17-2023 Tobacco use panel [facility] History of Present illness Narrative 06-09-2024 DO Olu Mcclellan 06/09/2024 10:10 AM EDT Note Date & Type Note Facility 06-09-2024 History of Presen t illness Narrative Reason for Appointment: Patient ID: Denise Gaitan is a 44 y.o. female who presents for Pre-op Visit Patient presents today for Pre Op appointment. Patient is scheduled to undergo Da Edison assisted Laparoscopic Hysterectomy, possible exploratory laparotomy, possible BSO, possible cystoscopy on 07/09/[address] Cao at [facility]. MEDICATIONS Current Outpatient Medications Medication Instructions ALPRAZolam (Xanax) 0.25 MG tablet TAKE 1 TABLET BY MOUTH NIGHTLY NEEDED FOR SLEEP FOR UP TO 90 DAYS. MAX DAILY AMOUNT: 0.25 MG clobetasol (Temovate) 0.05 % external solution Apply to scalp up to twice a day when flared, do not use one the face, groin, or underarms, 90 day supply clobetasol (Temovate) 0.05 % ointment Apply to hands up to twice a day when flared, do not use one the face, groin, or underarms, 90 day supply FLUoxetine (PROZAC) 20 mg, Oral, Daily hydrocortisone 2.5 % cream Apply to face bid prn for flares, hold when clear/90 day supply ketoconazole (NIZOral) 2 % cream Apply to rash on chest BID until clear then prn for flares/90 day supply Multiple Vitamin-Folic Acid tablet Multiple Vitamin SUMAtriptan (Imitrex) 25 MG tablet Every 12 hours ALLERGIES Allergies Allergen Reactions Alcaftadine Swelling Swelling and itching in eyes PROBLEMS Active Ambulatory Problems Diagnosis Date Noted Endometriosis 10/15/2023 Uterine leiomyoma 10/15/2023 Resolved Ambulatory Problems Diagnosis Date Noted No Resolved Ambulatory Problems Past Medical History: Diagnosis Date Actinic keratosis HISTORY PAST MEDICAL HISTORY SOCIAL HISTORY Past Medical History: Diagnosis Date Actinic keratosis Social History Tobacco Use Smoking status: Former Types: Cigarettes Smokeless tobacco: Never Substance Use Topics Alcohol use: Never Drug use: Never FAMILY HISTORY Family History Problem Relation Name Age of Onset Melanoma Neg Hx SURGICAL HISTORY Past Surgical History: Procedure Laterality Date SECTION, LOW TRANSVERSE ENDOMETRIAL ABLATION SALPINGECTOMY Bilateral REVIEW OF SYSTEMS Review of Systems: Review of Systems Constitutional: Negative. HENT: Negative. Eyes: Negative. Respiratory: Negative. Cardiovascular: Negative. Gastrointestinal: Negative. Genitourinary: Positive for dyspareunia and pelvic pain. Musculoskeletal: Negative. Skin: Negative. Neurological: Negative. All other systems reviewed and are negative. Hematological: Negative. Endocrine: Negative. Allergic/Immunologic: Negative. OBJECTIVE Objective: Physical Exam Constitutional: Appearance: Normal appearance. She is well-developed. Cardiovascular: Rate and Rhythm: Normal rate and regular rhythm. Pulmonary: Effort: Pulmonary effort is normal. Breath sounds: Normal breath sounds. Abdominal: General: Bowel sounds are normal. There is no distension. Palpations: Abdomen is soft. Tenderness: There is no abdominal tenderness. There is no guarding or rebound. Musculoskeletal: General: No swelling. Normal range of motion. Right lower leg: No edema. Left lower leg: No edema. Neurological: Mental Status: She is alert and oriented to person, place, and time. Skin: General: Skin is warm and dry. Psychiatric: Mood and Affect: Mood normal. Behavior: Behavior normal. Vitals and nursing note reviewed. Exam conducted with a chemical treatment operator present. Vitals: Estimated body mass index is 48.01 kg/m as calculated from the following: Height as of 12/28/22: 5' 3 . Weight as of 10/15/23: 271 lb. BP: No LMP recorded. ASSESSMENT & PLAN ICD-10-CM 1. Pre-op examination Z01.818 2. Menorrhagia with regular cycle N92.0 3. Pelvic pain in female R10.2 4. Dyspareunia in female N94.10 5. Dysmenorrhea N94.6 Pre Op: Patient is doing well but has complaints of pelvic pain and bleeding following an ablation performed in November 2022. I have discussed conservative management vs. surgical management with the patient in detail and patient desires surgical management at this time. Patient will undergo Da Edison assisted Laparoscopic Hysterectomy, possible exploratory laparotomy, possible BSO, possible cystoscopy on 07/09/2024. Surgical consents were signed, mmc was reviewed, and patient is to proceed to [facility] OR. Patient voiced that wound dressing STUCK to her skin and was difficult to remove. Patient had to use Baby oil and it was still difficult. USE JUST TAPE AND STERI STRIPS. Follow Up: Patient is to follow up at 1 & 6 weeks post operative to assess proper healing and recovery from procedure. Documented by Brionna Clayton LPN on behalf of: Melissa Cao DO documented in this encounter [facility] Clinical Note 12-15-2022 Note Date & Type Note Facility 12-15-2022 Note OPERATIVE NOTE OPERATION DATE: 12/15/2022 PROCEDURE: Clarisa endometrial ablation with robotic assisted laparoscopic bilateral salpingectomy with left ovarian cystectomy, lysis of abdominal of omental adhesions from the anterior abdominal wall. PREOPERATIVE DIAGNOSIS: Desires permanent sterilization, menorrhagia, multiparity. POSTOPERATIVE DIAGNOSIS: Desires permanent sterilization, menorrhagia, multiparity. ANESTHESIA: General. SURGEON: Melissa Cao D.O. FLEXIBLE MACHINING SYSTEM MACHINIST: KRISTIE Farmer URINE OUTPUT: Yellow and clear. BLOOD LOSS: 5 mL. FINDINGS: Left ovarian cyst, hemorrhagic in appearance. Significant endometriosis along the pelvis side wall, posterior cul-de-sac and towards the bladder. Evidence of prior scar tissue believed from surgical prior . Otherwise, tubes and ovaries were normal in appearance. Normal appearing uterus. SPECIMEN: Bilateral tubes, left ovarian cyst wall. PROCEDURE: The patient was taken back to the OR where she was prepped and draped in the normal sterile fashion after being placed in the dorsal lithotomy position, after being placed under general anesthesia without difficulty. A weighted speculum was placed into the vagina. The anterior lip was grasped with a single tooth tenaculum. The patient was then sounded to approximated 10 cm. The patient's cervix was gently dilated using Hegar dilators. The hysteroscope was passed through the cervix into the uterus where both ostia were seen. No gross evidence of polyps, fibroids or malignancy. The cervical length was noted to be 5 cm. The total cavity length is 5 cm. The Clarisa ablation apparatus was set to approximately 5 cm in length. This was placed through the cervix and into the uterus. After the seal was tested, at that time the total ablation of 120 seconds was performed with the Clarisa without difficulty. All instruments were removed from the vagina. Excellent hemostasis noted. Sponge and lap count correct times 2. Patient taken to recovery in stable condition. The patient was taken back to the OR where she was prepped and draped in the normal sterile fashion after being placed in the dorsal lithotomy position, after being placed under general anesthesia without difficulty. A wet sponge stick was placed into the patient's vagina. Attention was then turned to the patient's abdomen, where a scalpel was used to make a small infraumbilical incision. The S retractors were then used to dissect the underlying layers until the fascia could be seen. The fascia was then grasped with Cora clamps and tented up. A knife was then used to make a small incision to the fascia. The muscle was identified, at that time two sutures of #0 Vicryl on a GI needle was then used and placed through the fascia. The peritoneum was then identified and entered bluntly. The 10-4 Adenike was then placed into the patient's abdomen. This was confirmed with direct visualization of the bowel, using the laparoscope. The patient's abdomen was then insufflated using approximately 4 liters of CO2 gas. Survey of the patient's abdomen demonstrated normal appearing ovaries, uterus and tubes. A second and third lateral port, which was 7-8 in size and 5 mm in size, was then placed laterally after incision was made in the skin under direct visualization. The patient's tube on the patient's right side was identified. The tube was then tented up using a grasper. The LigaSure was used to transect and coagulate the mesosalpinx from the fimbriated end to the insertion at the uterus; the tube was amputated and removed in its entirety. Excellent hemostasis was noted. This was performed on the contralateral side as well. The lateral ports were then removed under direct visualization with excellent hemostasis. The abdomen was desufflated. All instruments were removed from the patient's abdomen. The fascia was closed using the #0 Vicryl on GI needle. The skin was closed using 4-0 Vicryl subcuticularly. All instruments were removed from the patient's vagina as well. The patient was taken out of the dorsal lithotomy position and placed in the supine position and taken to recovery in stable condition. Sponge, lap and needle counts were correct x2. [facility] Clinical Note 12-15-2022 Note Date & Type Note Facility 12-15-2022 Note OPERATIVE NOTE OP Note OPERATION DATE: 12/15/2022 ADDENDUM: Please note that left ovarian cystectomy was used, using the Vessel Sealer. Left ovarian cyst wall was then sent off to Pathology. Excellent hemostasis was then assured. Please also note that there was lysis of adhesions of the omentum from the anterior abdominal wall, also using the Vessel Sealer. Again, excellent hemostasis was assured. [facility] Evaluation note Note Date & Type Note Facility Evaluation note Diagnosis Pharyngitis, unspecified etiology Bronchitis Bronchitis, not specified as acute or chronic documented in this encounter [employer] Phone: Evaluation note Note Date & Type Note Facility Evaluation note Diagnosis Women's annual routine gynecological examination documented in this encounter [employer] Phone: Evaluation note Note Date & Type Note Facility Evaluation note Diagnosis Encounter for screening mammogram for breast cancer documented in this encounter [employer] Phone: Evaluation note Note Date & Type Note Facility Evaluation note Diagnosis Women's annual routine gynecological examination documented in this encounter [email or web address] [email or web address] Phone: Evaluation note Note Date & Type Note Facility Evaluation note Diagnosis Pre-op examination Menorrhagia with regular cycle Pelvic pain in female Unspecified symptom associated with female genital organs Dyspareunia in female Dysmenorrhea documented in this encounter [facility] Diagnosis Encounter for annual routine gynecological examination Diagnosis Screening mammogram, encounter for Advance Directives No Advanced Directives Records FoundDocuments on File Type Date Recorded 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 Expl 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 ACP-Advance Directive ACP-Power of Silo Worker Documents on File Type Date Recorded 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 Expl 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 ACP-Advance Directive ACP-Power of Silo Worker Documents on File Type Date Recorded 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 Expl anation Advance Directives and Living Will Power of Silo Worker Healthcare Agents on File Name Relationship Healthcare Agent Relationshi p Communication David Gaitan Spouse Primary Decision Maker Healthcare Agents on File Name Relationship Healthcare Agent Relationshi p Communication David Gaitan Spouse Primary Decision Maker Reason for Referral Specialty Diagnoses / Procedures Referred By Contac t Referred To Contact Radiology Diagnoses Encounter for screening mammogram for breast cancer Procedures EDWARD SHARAD DIGITAL SCREEN BILATERAL Rahul Damon MD [address] [place] [address] [address] [place] [address] Referral ID Status Reason Start Date Expiration Date V isits Requested Visits Authorized Pending Review 11/03/2021 11/03/2022 1 1 Summary Purpose Family History No Family History Records FoundNo Family History Records FoundNo Family History Records Found Additional Source Comments Reason for Visit (unrecogniz ed section and content) Status Reason Specialty Diagnoses / Procedures Referre d By Contact Referred To Contact Closed Radiology Diagnoses Screening mammogram, encounter for Procedures EDWARD SHARAD DIGITAL SCREEN BILATERAL EDWARD DIGITAL SCREEN W OR WO CAD BILATERAL Rahul Damon MD [address] [place] [address] [place] [address] [facility] [address] [address] Specialty Diagnoses / Procedures Referred By Contac t Referred To Contact Radiology Diagnoses Encounter for screening mammogram for breast cancer Procedures EDWARD SHARAD DIGITAL SCREEN BILATERAL Rahul Damon MD [address] [place] [address] [place] [address] Referral ID Status Reason Start Date Expiration Date V isits Requested Visits Authorized Pending Review 11/03/2021 11/03/2022 1 1 Reason Comments Pre-op Visit Care Teams (unrecognized sec tion and content) Test Designer Relationship Specialty Start Date End Date Kaleigh James, [employer] - [employer] [address] [place] [address] PCP - General Family Nurse Practitioner 11/14/21 Test Designer Relationship Specialty Start Date End Date Kaleigh James APRN - MID [employer] [address] [place] [address] PCP - General Family Nurse Practitioner 11/14/21 INFORMATION SOURCE (unrecogn ized section and content) DATE CREATED AUTHOR 01/29/2023 [facility] DATE CREATED AUTHOR AUTHOR'S ORGANIZ ATION 04/29/2023 [facility] DATE CREATED AUTHOR AUTHOR'S ORGANIZ ATION 06/10/2024 [facility] EPIC FOR RECORDS PERTAINING TO PATIENTS WHO ARE OR HAVE BEEN ENROLLED IN A CHEMICAL DEPENDENCY/SUBSTANCEABUSE PROGRAM, SOME INFORMATION MAY BE OMITTED. This clinical summary was aggregated from multiple sources. Caution should be exercised in using it in the provision of clinical care. This summary normalizes information from multiple sources, and as a consequence, information in this document may materially change the coding, format and clinical context of patient data. In addition, data may be omitted in some cases. CLINICAL DECISIONS SHOULD BE BASED ON THE PRIMARY CLINICAL RECORDS. [employer] provides no warranty or guarantee of the accuracy or completeness of information in this document.
[2024-06-27 11:00] LABS: Basophils Absolute Auto 0.1 10^3/uL (0.0-0.1); Basophils Percent Auto 0.9 % (0.2-2.0); Eosinophils Absolute Auto 0.3 10^3/uL (0.0-0.7); Eosinophils Percent Auto 2.9 % (0.9-7.0); Hematocrit 42.2 % (36.0-48.0); Hemoglobin 13.9 g/dL (12.0-16.0); Immature Granulocytes Abs Auto 0.16 10^3/uL (0.00-0.03); Immature Granulocytes Pct Auto 1.5 % (0.0-0.5); Lymphocytes Absolute Auto 3.2 10^3/uL (1.2-3.8); Lymphocytes Percent Auto 29.5 % (20.5-60.0); Mean Corpuscular HGB Conc 32.9 g/dL (29.9-35.2); Mean Corpuscular Hemoglobin 29.4 pg (26.7-34.0); Mean Corpuscular Volume 89.2 fL (81.0-99.0); Mean Platelet Volume 10.4 fL (9.5-13.5); Monocytes Absolute Auto 1.1 10^3/uL (0.3-0.8); Monocytes Percent Auto 10.3 % (1.7-12.0); Neutrophils Absolute Auto 5.8 10^3/uL (1.4-6.5); Neutrophils Percent Auto 54.9 % (43.0-75.0); Platelet Count 301 10^3/uL (150-450); Red Blood Count 4.73 10^6/uL (4.20-5.40); Red Cell Distribution Width 12.6 % (11.0-15.0); White Blood Count 10.7 10^3/uL (4.0-11.0)
[2024-06-27 11:23] LABS: INR 0.96; Partial Thromboplastin Time 26.7 sec (22.3-36.2); Prothrombin Time 10.2 sec (9.0-11.6)
[2024-06-27 11:56] LABS: Alanine Aminotransferase 61 U/L (14-59); Albumin Level 3.4 g/dL (3.4-5.0); Alkaline Phosphatase 79 U/L (46-116); Anion Gap 13.5; Aspartate Amino Transferase 24 U/L (15-37); BUN Creatinine Ratio 7.9; Bilirubin Direct 0.1 mg/dL (0.0-0.2); Bilirubin Total 0.3 mg/dL (0.2-1.0); Calcium 9.1 mg/dL (8.5-10.1); Carbon Dioxide 26.4 mmol/L (21.0-32.0); Chloride 104 mmol/L (98-107); Estimated GFR (African America >60 (>=60 mL/min/1.73m^2); Estimated GFR (Non-African Ame >60 (>=60 mL/min/1.73m^2); Globulin 3.4 g/dL; Glucose 88 mg/dL (74-106); Potassium 3.9 mmol/L (3.5-5.1); Sodium 140 mmol/L (136-145); Total Protein 6.8 g/dL (6.4-8.2)
== END 2024-06-27 10:05 | disposition home or self-care (01) ==
LOC: PST 10:06
PROVIDERS: Visit Provider Obstetrics & Gynecology
DX: Z01.812 Encounter for preprocedural laboratory examination (principal); N92.0 Excessive and frequent menstruation with regular cycle; R10.2 Pelvic and perineal pain; N94.6 Dysmenorrhea, unspecified; N94.10 Unspecified dyspareunia
CPT/HCPCS: 80048; 80076; 85025; 85610; 85730; 86850; 86900; 86901

== ENCOUNTER 2024-07-09 06:15 | Day surgery (SDC) | payer BC, SELFPAY ==
[2024-06-27 10:47] VITALS: BP 110/78; PULSE 74; TEMP 36.5; O2SAT 100; BMI 52.3
[2024-07-09] VITALS (14 sets, daily range): BP systolic 95–160; BP diastolic 37–110; PULSE 78–115; TEMP 35.9–36.9; O2SAT 74–100; BMI 51.8
--- OUTSIDE RECORDS SUMMARY | 2024-07-09 06:18 | XMS_ITS | CCD ---
Author Organization [facility] Care Team Providers Care Enamel Buffer Name Role Phone Javier Dawson Primary Care Provider Unavaildieter xiao Unavailable Primary Care Provider UnavailJavier Castro MD Primary Care Provider [phone] Might [employer] - OUTS[employer] SAL[employer] INSPECTORKaleigh Primary Care Provider Might [employer] - OUTS[employer] SAL[employer] INSPECT[place] Primary Care Provider KILEY ., DR TORRES [...] Unavailable KILEY ., DR TORRES Admitting Unavailable ALGER, DR GUILLERMO [employer] Unavailable REQUEST, DR [...] Allergy Type Date of Onset Reaction(s) Facility (3 sources) Alcaftadine Propensity to adverse reactions 3 Swelling [facility] Work Phone: Medications Current Medications Medication Drug Class(es) Dates Sig (Normalized) Sig (Original) ALPRAZolam 0.25 mg oral tablet (9 sources) Benzodiazepine Start: 05-18-2023 take 1 tablet [...] tablet clobetasol propionate 0.5 mg/ml topical solution (6 sources) Corticosteroid Start: 10-16-2023 clobetasol (Temovate) 0.05 [...] 09/08/2019 Active FLUoxetine 20 mg oral capsule (3 sources) Serotonin Reuptake Inhibitor take 1 capsule [...] 07/14/2019 Active hydrocortisone 25 mg/ml topical cream (3 sources) Corticosteroid Start: 2023 hydrocortisone 2.5 % cream Indications: Other seborrheic dermatitis Apply to face bid prn for flares, hold when clear/90 day supply 90 g 3 10/16/2023 Active ipratropium bromide 0.021 mg/actuat metered dose nasal spray (1 source) Anticholinergic Start: 2020 ipratropium (ATROVENT) 0.03 % nasal spray ketoconazole 20 mg/ml topical cream (3 sources) Azole Antifungal Start: 2023 ketoconazole (NIZOral) 2 % cream Indications: Tinea versicolor Apply to rash on chest BID until clear then prn for flares/90 day supply 180 g 3 10/16/2023 Active MAGNESIUM-ZINC PO (2 sources) MAGNESIUM-ZINC P O Take by mouth 0 Active montelukast 10 mg oral tablet (4 sources) Leukotriene Receptor Antagonist Start: 2023 take 1 tablet by mouth at bedtime montelukast (Singulair) 10 MG tablet Take 10 mg by mouth at bedtime 05/13/2024 Active Start: 11-14-2021 take 1 tablet by mariel th once daily montelukast (SINGULAIR) 10 MG tablet Indications: Chronic allergic rhinitis Take 1 tablet by mouth nightly 90 tablet 3 11/14/2021 Active Multiple Vitamin-Folic Acid tablet (3 sources) Multiple Vitamin -Folic Acid tablet Multiple [...] 09/08/2019 Active SUMAtriptan 25 mg oral tablet (3 sources) Serotonin-1b and Serotonin-1d Receptor Agonist SUMAtriptan [...] [Hyperlipidemia, unspecified] Onset: 11-14-2021 11-14-2021 Chronic Endometriosis (3 sources) Endometriosis (clinical); Translations: [Endometriosis, unspecified] Onset: [...] Da te Episodic/Chronic Benign neoplasm of uterus (3 sources) Uterine leiomyoma; Translations: [Leiomyoma of uterus, unspecified] Onset: 10-15-2023 10-15-2023 Episodic Results Test Name Value Interpretation Reference Range Facility ALL CBC WITH AUTO DIFFon BASOPHILS ABSOLUTE AUTO 0.1 [facility] Basophils/100 WBC (Bld) 0.9 % 0.2 - 2.0 % [facility] Eosinophils/100 WBC (Bld) 2.9 % 0.9 - 7.0 % [facility] Erythrocyte distribution width (RBC) [Ratio] 12.6 % 11.0 - 15.0 % [facility] Hematocrit (Bld) [Volume fraction] 42.2 % 36.0 - 48.0 % [facility] [Mass/Vol] 13.9 g/dL 12.0 - 16.0 g/dL [facility] IMMATURE GRANULOCYTES ABS AUTO 0.16 High [facility] Immature granulocytes/100 WBC (Bld) 1.5 % High 0.0 - 0.5 % [facility] Interpretation and review of laboratory results Abnormal [facility] LYMPHOCYTES ABSOLUTE AUTO 3.2 [facility] Lymphocytes/100 WBC (Bld) 29.5 % 20.5 - 60.0 % [facility] MCH (RBC) [Entitic mass] 29.4 pg 26.7 - 34.0 pg [facility] MCHC (RBC) [Mass/Vol] 32.9 g/dL 29.9 - 35.2 g/dL [facility] MCV (RBC) [Entitic vol] 89.2 fL 81.0 - 99.0 fL [facility] MONOCYTES ABSOLUTE AUTO 1.1 High [facility] Monocytes/100 WBC (Bld) 10.3 % 1.7 - 12.0 % [facility] NEUTROPHILS ABSOLUTE AUTO 5.8 [facility] Neutrophils/100 WBC (Bld) 54.9 % 43.0 - 75.0 % [facility] Platelet mean volume (Bld) [Entitic vol] 10.4 fL 9.5 - 13.5 fL [facility] EO # 0.3 [facility] PLT 301 [facility] RBC 4.73 [facility] WBC 10.7 [facility] DIGITAL SCREEN SELF REFERRAL W OR WO CAD BILATERALon 04-26-2023 EDWARD SHARAD DIGITAL SCREEN SELF REFERRAL W OR [...] to the patient regarding the results. [employer] recommends annual mammograms for women 40 years and older. Interpreted by: Ofe Steiner MD Signed by: Ofe Steiner MD 04/26/23 CC Recipients: Melissa Cao MD - Mail Final result Normal [facility] CBC AUTO DIFFon 04-28-2023 BASO # 0.1 103/ul Normal 0.0-0.1 [facility] Comment on above: Performed By: #### C BC ####[facility] [address] [place] [address]Dr. Charis Knox Basophils/100 WBC (Bld) 0.6 % Normal 0.2-2.0 [facility] Comment on above: Performed By: #### C BC ####[facility] [address] [place] [address]Dr. Charis Knox EO # 0.4 103/ul Normal 0.0-0.7 [facility] Comment on above: Performed By: #### C BC ####[facility] [address] [place], [place] [address]Dr. Charis Knox Eosinophils/100 WBC (Bld) 3.3 % Normal 0.9-7.0 [facility] Comment on above: Performed By: #### C BC ####[facility] [address] [place], [place] [address]Dr. Charis Knox Erythrocyte distribution width (RBC) [Ratio] 13.6 % Normal 11.0-15.0 [facility] Comment on above: Performed By: #### C BC ####[facility] [address] [place], [place] [address]Dr. Charis Knox Hematocrit (Bld) [Volume fraction] 39.9 % Normal 36.0-48.0 [facility] Comment on above: Performed By: #### C BC ####[facility] [address] [place], [place] [address]Dr. Charis Knox Hemoglobin (Bld) [Mass/Vol] 12.9 g/dL Normal 12.0-16.0 [facility] Comment on above: Performed By: #### C BC ####[facility] [address] [place], [place] [address]Dr. Charis Knox IG # 0.09 10e3/ul Critically high 0.00-0.03 The [facility] Comment on above: Performed By: #### C BC ####[facility] [address] [place] [id number]. Melindaomer Knox IG % 0.8 % Critically high 0.0-0.5 [facility] Comment on above: Performed By: #### C BC ####[facility] [address] [place] [id number]. Melindaomer Abilio LYMPH # 3.0 103/ul Normal 1.2-3.8 [facility] Comment on above: Performed By: #### C BC ####[facility] [address] [place] [id number]. Melindaomer Knox Lymphocytes/100 WBC (Bld) 27.8 % Normal 20.5-60.0 [facility] Comment on above: Performed By: #### C BC ####[facility] [address] [place] [address]Dr. Charis Knox MANUAL DIFF REQ NO Normal [facility] Comment on above: Performed By: #### C BC ####[facility] [address] [place] [address]Dr. Charis Abilio MCH (RBC) [Entitic mass] 27.5 pg Normal 26.7-34.0 [facility] Comment on above: Performed By: #### C BC ####[facility] [address] [place] [address]Dr. Charis Knox MCHC (RBC) [Mass/Vol] 32.3 g/dL Normal 29.9-35.2 [facility] Comment on above: Performed By: #### C BC ####[facility] [address] [place] [address]Dr. Charis Abilio MCV (RBC) [Entitic vol] 85.1 fL Normal 81.0-99.0 [facility] Comment on above: Performed By: #### C BC ####[facility] [address] [place] [id number]. Charis Knox MONO # 0.9 103/ul Critically high 0.3-0.8 [facility] Comment on above: Performed By: #### C BC ####[facility] [address] [place] [id number]. Charis Knox Monocytes/100 WBC (Bld) 8.5 % Normal 1.7-12.0 [facility] Comment on above: Performed By: #### C BC ####[facility] [address] [place] [id number]. Charis Knox NEUT # 6.3 103/ul Normal 1.4-6.5 [facility] Comment on above: Performed By: #### C BC ####[facility] [address] [place] [address]Dr. Charis Knox Neutrophils/100 WBC (Bld) 59.0 % Normal 43.0-75.0 [facility] Comment on above: Performed By: #### C BC ####[facility] [address] [place] [address]Dr. Charis Knox Platelet mean volume (Bld) [Entitic vol] 9.8 fL Normal 9.5-13.5 [facility] Comment on above: Performed By: #### C BC ####[facility] [address] [place] [id number]. Charis Knox PLT 291 103/ul Normal 150-450 [facility] Comment on above: Performed By: #### C BC ####[facility] [address] [place] [id number]. Charis Knox RBC 4.69 106/ul Normal 4.20-5.40 [facility] Comment on above: Performed By: #### C BC ####[facility] [address] [place] [id number]. Charis Knox WBC 10.8 103/ul Normal 4.0-11.0 [facility] Comment on above: Performed By: #### C BC ####[facility] [address] [place] [id number]. Charis Knox POINT OF CARE GLUCOSEon 11-19 Glucose [Mass/Vol] 94 mg/dL Normal 74-106 [facility] Comment on above: Performed By: #### P OCGLUC #### [facility] [address] [address] [address] Charis Knox PREG QUANT HCGon 12-15-2022 HCG QUANT <1 Normal [facility] Comment on above: Performed By: #### P REGQNT #### [facility] [address] [place] [address] Dr. Charis Knox HCG RANGE SEE BELOW Normal [facility] Comment on above: Result Comment: 5-50 0.2-1 WEEK 50-500 1-2 WEEKS 100-5,000 2-3 WEEKS 500-10,000 3-4 WEEKS 1,000-50,000 4-5 WEEKS 10,000-100,000 5-6 WEEKS 15,000-200,000 6-8 WEEKS 10,000-100,000 2-3 MONTHS Performed By: #### P REGQNT #### [facility] [address] [place] [address] Dr. Charis Knox CBC AUTO DIFFon 10-21-2022 BASO # 0.1 103/ul Normal 0.0-0.1 [facility] Comment on above: Performed By: #### C BC ####[facility] [address] [place], [place] [address]Dr. Charis Knox Basophils/100 WBC (Bld) 0.6 % Normal 0.2-2.0 [facility] Comment on above: Performed By: #### C BC ####[facility] [address] [place], [place] [address]DrJarek Knox EO # 0.2 103/ul Normal 0.0-0.7 [facility] Comment on above: Performed By: #### C BC ####[facility] [address]zc[address] [place], [place] [address]DrJarek Knox Eosinophils/100 WBC (Bld) 2.2 % Normal 0.9-7.0 [facility] Comment on above: Performed By: #### C BC ####[facility] [address] [place], [place] [address]Dr. Charis Knox Erythrocyte distribution width (RBC) [Ratio] 13.5 % Normal 11.0-15.0 [facility] Comment on above: Performed By: #### C BC ####[facility] [address] [place] [address]Dr. Melindaomer Knox Hematocrit (Bld) [Volume fraction] 40.0 % Normal 36.0-48.0 [facility] Comment on above: Performed By: #### C BC ####[facility] [address] [place] [address]Dr. Charis Knox Hemoglobin (Bld) [Mass/Vol] 13.0 g/dL Normal 12.0-16.0 [facility] Comment on above: Performed By: #### C BC ####[facility] [address] [place], [place] [address]Dr. Charis Knox IG # 0.08 10e3/ul Critically high 0.00-0.03 [facility] Comment on above: Performed By: #### C BC ####[facility] Op[address] [place], [place] [address]Dr. Charis Knox IG % 0.8 % Critically high 0.0-0.5 [facility] Comment on above: Performed By: #### C BC ####[facility] [address] [place], [place] [address]Dr. Charis Knox LYMPH # 2.4 103/ul Normal 1.2-3.8 [facility] Comment on above: Performed By: #### C BC ####[facility] [address] [place], [place] [address]Dr. Charis Knox Lymphocytes/100 WBC (Bld) 24.0 % Normal 20.5-60.0 [facility] Comment on above: Performed By: #### C BC ####[facility] [address] [place], [place] [address]Dr. Charis Knox MANUAL DIFF REQ NO Normal [facility] Comment on above: Performed By: #### C BC ####[facility] [address] [place], [place] [address]Dr. Charis Knox MCH (RBC) [Entitic mass] 26.7 pg Normal 26.7-34.0 [facility] Comment on above: Performed By: #### C BC ####[facility] [address] [place] [id number]. Charis Abilio MCHC (RBC) [Mass/Vol] 32.5 g/dL Normal 29.9-35.2 [facility] Comment on above: Performed By: #### C BC ####[facility] [address] [place] [id number]. Charis Knox MCV (RBC) [Entitic vol] 82.3 fL Normal 81.0-99.0 [facility] Comment on above: Performed By: #### C BC ####[facility] [address] [place] [id number]. Charis Knox MONO # 0.6 103/ul Normal 0.3-0.8 [facility] Comment on above: Performed By: #### C BC ####[facility] [address] [place], [place] [address]Dr. Charis Knox Monocytes/100 WBC (Bld) 6.4 % Normal 1.7-12.0 [facility] Comment on above: Performed By: #### C BC ####[facility] [address] [place], [place] [address]Dr. Charis Knox NEUT # 6.5 103/ul Normal 1.4-6.5 [facility] Comment on above: Performed By: #### C BC ####[facility] [address] [place], [place] [address]Dr. Charis Knox Neutrophils/100 WBC (Bld) 66.0 % Normal 43.0-75.0 [facility] Comment on above: Performed By: #### C BC ####[facility] [address] [place], [place] [address]Dr. Charis Knox Platelet mean volume (Bld) [Entitic vol] 9.8 fL Normal 9.5-13.5 [facility] Comment on above: Performed By: #### C BC ####[facility] [address] [place], [place] [address]Dr. Charis Knox PLT 329 103/ul Normal 150-450 [facility] Comment on above: Performed By: #### C BC ####[facility] [address] [place] [id number]. Charis Knox RBC 4.86 106/ul Normal 4.20-5.40 [facility] Comment on above: Performed By: #### C BC ####[facility] [address] [place] [id number]. Charis Knox WBC 9.9 103/ul Normal 4.0-11.0 [facility] Comment on above: Performed By: #### C BC ####[facility] [address] [place] [address]Dr. Charis Knox FREE T4on 10-21-2022 Free T4 [Mass/Vol] 0.91 ng/dL Normal 0.76-1.46 [facility] Comment on above: Performed By: #### F T4 #### [facility] [address] [address] [address] Charis Knox GLYCOHEMOGLOBIN A1Con 2022 ADA RECOMMENDATION SEE BELOW Normal [facility] Comment on above: Result Comment: ADA RECOMMENDED LIMIT 4.0 - 6.0 ADA THERAPEUTIC TARGET < 7.0 ACTION SUGGESTED > 7.0 Performed By: #### A 1C ####[facility] [address] [place] [address]Dr. Charis Knox Glucose [Mass/Vol] 117 mg/dL Normal [facility] Comment on above: Performed By: #### A 1C ####[facility] [address] [place] [address]DrJarek Knox HbA1c (Bld) [Mass fraction] 5.7 % Normal 4.5-6.2 [facility] Comment on above: Performed By: #### A 1C ####[facility] [address] [place] [address]Dr. Charis Knox PREG QUANT HCGon 10-21-2022 HCG QUANT <1 Normal [facility] Comment on above: Performed By: #### T SH, PREGQNT #### [facility] [address] [address] [address] Charis Knox HCG RANGE SEE BELOW Normal [facility] Comment on above: Result Comment: 5-50 0.2-1 WEEK 50-500 1-2 WEEKS 100-5,000 2-3 WEEKS 500-10,000 3-4 WEEKS 1,000-50,000 4-5 WEEKS 10,000-100,000 5-6 WEEKS 15,000-200,000 6-8 WEEKS 10,000-100,000 2-3 MONTHS Performed By: #### T SH, PREGQNT #### [facility] [address] [place] [address] Dr. Charis Knox PROTIMEon 10-21-2022 INR Coag (PPP) [Relative time] {INR} Normal [facility] Comment on above: Performed By: #### P TT, PT #### [facility] [address] [place] [address] Dr. Charis Knox INR GUIDELINES SEE BELOW Normal [facility] Comment on above: Result Comment: HEATHER RED INR: 2.0 - 3.0 CONDITIONS NOT LISTED BELOW 2.5 - 3.5 FOR PROSTHETIC HEART VALVE REPLACEMENT 2.5 - 3.5 RECURRENT THROMBOSIS Performed By: #### P TT, PT #### [facility] [address] [place] [address] Dr. Charis Knox PT Coag (PPP) [Time] 9.8 s Normal 9.0-11.6 [facility] Comment on above: Performed By: #### P TT, PT #### [facility] [address] [place] [address] Dr. Charis Knox PTTon 10-21-2022 aPTT Coag (Bld) [Time] 26.2 s Normal 22.3-36.2 [facility] Comment on above: Performed By: #### P TT, PT #### [facility] [address] [place] [address] Dr. Charis Knox TSHon 10-21-2022 TSH 0.966 uIU/mL Normal 0.358-3.740 [facility] Comment on above: Performed By: #### T SH, PREGQNT #### [facility] [address] [place] [address] Dr. Charis Knox US PELVIS AND TRANSVAGon [...] by: GUILLERMO JOSEPH Date: 2022-10-21 18:27 Normal [facility] Cytologyon 10-12-2022 Cytology (NOTE) INTERPRETATION Cervical material, (ThinPrep vial, Imaging-assisted review): Specimen Adequacy: Satisfactory for evaluation. - Endocervical/transf ormation zone component present. Descriptive Diagnosis: Negative for intraepithelial lesion or malignancy. 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 Advise annual screening mammography. BREAST DENSITY SUMMARY C: The breasts are heterogeneously dense which may obscure small masses. BI-RADS 2 BIRADS: BIRADS - CATEGORY 2 Benign Findings. Normal interval follow-up is recommended in 12 months. OVERALL ASSESSMENT - BENIGN A letter of notification will be sent to the patient regarding the results. [employer] recommends annual mammograms for women 40 years and older. [facility] EXAMINATION: SCREENING DIGITAL BILATERAL MAMMOGRAM WITH [...] punctate calcifications are redemonstrated in the breast. [facility] Radiology Study observation (narrative) [employer] Phone: [employer] SHARAD DIGITAL SCREEN BILA TERALOrdered By: Ofe Steiner on 12-14-2021 [employer] Phone: [employer] SHARAD DIGITAL SCREEN BILA TERALon 11-04-2020 Benign findings. BI-RADS 2 BIRADS: BIRADS - CATEGORY 2 Benign, no evidence of malignancy. Normal interval follow-up is recommended in 12 months. OVERALL ASSESSMENT - BENIGN A letter of notification will be sent to the patient regarding the results. [employer] recommends annual mammograms for women 40 years and older. [employer] Phone: EXAMINATION: SCREENING DIGITAL BILATERAL MAMMOGRAM WITH [...] breast. Benign punctate calcifications again noted bilaterally. [employer] Phone: Lee, Mhpn Incoming Radiant Results From [employer] - 11/04/2020 9:19 AM EDT EXAMINATION: SCREENING [...] to the patient regarding the results. [employer] recommends annual mammograms for women 40 years and older. [employer] Phone: Vital Signs Date Time Vital Sign Value Performing Clinician Puneet [email or web address] 06-09-2024 10:27-0400 Body mass index (BMI) [Ratio] 51.09 kg/m2 [employer] Phone: [facility] [employer] 06-09-2024 10:27-0400 Body weight 130.82 kg [employer] Phone: [facility] [employer] 06-09-2024 10:27-0400 Diastolic blood pressure 72 mm[Hg] [employer] Phone: [facility] [employer] 06-09-2024 10:27-0400 Systolic blood pressure 122 mm[Hg] [employer] Phone: [facility] Healthcare Encounters Encounter Date Encounter Type Care Provider Facility Start: 06-27-2024 End: 06-27-2024 Clinisync Result Encounter [employer] Phone: [facility] External Department Unsolicited Start: 06-27-2024 End: 06-27-2024 [facility]ync Result Encounter Melissa Kiley DO Work Phone: [facility] External Department Unsolicited Start: 06-09-2024 End: 06-09-2024 Bamboo flowsheet Melissa Kiley DO Work Phone: [facility] Start: 06-09-2024 End: 06-09-2024 Bamboo flowsheet Melissa Kiley DO Work Phone: [facility] Start: 06-09-2024 End: 06-09-2024 Office outpatient visit 15 minutes Melissa Kiley DO Work Phone: [facility] Comment on above: Pre-op examination; Menorrhagia with regular cycle; Pelvic pain in female; Dyspareunia in female; Dysmenorrhea Start: 06-09-2024 End: 06-09-2024 Preprocedural examination done Melissa Kiley DO Work Phone: [facility] Start: 06-09-2024 End: 06-09-2024 ambulatory MELISSA KILEY Not Available Start: 10-16-2023 End: 10-16-2023 ambulatory ANA DOOLEY Not Available Start: 10-15-2023 End: 10-15-2023 ambulatory MELISSA KILEY Not Available Start: 09-25-2023 Chart abstracting Melissa Kiley DO Work Phone: [facility] Start: 04-26-2023 End: 04-29-2023 ambulatory KALIEGH Mares [facility] Start: 12-15-2022 End: 12-15-2022 ambulatory NONE LISTED REQUEST Facility:[facility] Start: 12-06-2022 Encounter for other preprocedural examination DR MELISSA CAO . [facility] Start: 11-30-2022 End: 12-01-[address] MELISSA CAO . Facility:[facility] Start: 11-30-2022 End: 12-01-2022 Encounter for other preprocedural examination DR MELISSA CAO . Facility:[facility] Start: 10-21-2022 End: 10-22-[address] MELISSA CAO . Facility:[facility] Start: 10-12-2022 End: 10-13-2022 ambulatory [facility] Start: 10-12-2022 Encounter for gynecological examination (general) (routine) without abnormal findings [facility] Start: 10-12-2022 End: 10-12-2022 Patient encounter procedure Kaleigh Sanches FAST BRIM POUNCER - OUTSIDE SALES INSPECTOR Work Phone: [facility] Start: 10-12-2022 End: 10-12-2022 Subsequent hospital visit by physician Kaleigh Sanches FA[employer] POUNCER - OUTSIDE SALES INSPECTOR Work Phone: [facility] Laboratory Comment on above: Women's annual routi ne gynecological examination Start: 12-14-2021 End: 12-16-2021 Subsequent hospital visit by physician [facility] Mamm[facility] Mammography Comment on above: Encounter for screen ing mammogram for breast cancer Start: 07-07-2021 End: 07-07-2021 [facility] Covid Screening Comment on above: Pharyngitis, unspeci fied etiology; Bronchitis Start: 11-03-2020 End: 11-05-2020 Subsequent hospital visit by physician [facility] Mammography [facility] Mammography Comment on above: Screening mammogram, encounter for Start: 09-09-2020 End: 09-09-2020 Subsequent hospital visit by physician Javier Dawson [facility] Laboratory Comment on above: Encounter for annual routine gynecological examination Start: 09-08-2019 End: 09-08-2019 Subsequent hospital visit by physician Javier Dawson MD Work Phone: [facility] Laboratory Comment on above: Women's annual routi ne gynecological examination Procedures Date Procedure Procedure Detail Performing Clinician Start: 06-27-2024 ALL CBC WITH AUTO DIFF Melissa Cao DO Work Phone: Start: 12-14-2021 Screening mammograph y bi 2-view breast inc cad Rahul Damon MD Work Phone: Start: 10-10-2021 Microscopic observat ion [Identifier] in Cervix by Cyto stain [facility] Start: 11-03-2020 Screening mammograph y bi 2-view breast inc cad Rahul Damon Work Phone: Start: 09-09-2020 Microscopic observat ion [Identifier] in Cervix by Cyto stain [facility] Schedule Plan of Treatment Date Care Activity Detail Author Start: 11-18-2026 Lipid panel Lipids [facility] Start: 08-03-2025 DTaP/Tdap/Td vaccine (2 - Td or Tdap) DTaP/Tdap/Td vaccine (2 - Td or Tdap) [facility] Start: 08-03-2025 DTaP/Tdap/Td vaccine (2 - Td) DTaP/Tdap/Td vaccine (2 - Td) [facility] Work Phone: Start: 10-21-2024 End: 10-21-2024 Patient encounter procedure 10/21/2024 3:10 PM EST Office Visit [facility] [address] [place] [id number] Ana Dooley, PA [address] [place], [place] [id number] [facility] Start: 10-20-2024 End: 10-20-2024 Patient encounter procedure 10/20/2024 10:00 AM EST Office Visit [facility] [address] [address] Melissa Cao, DO [address], [facility] Start: 10-10-2024 Screening for malign ant neoplasm of cervix [facility] Start: 06-09-2024 End: 06-09-2024 Patient encounter procedure 06/09/2024 10:10 AM EDT Consult [facility] [address] [place] [address] Melissa Cao, DO [address] [place] [address] Arrived [facility] Comment on above: Arrived Start: 10-16-2023 End: 10-16-2023 Patient encounter procedure 10/16/2023 4:20 PM EST Office Visit [facility] [address] [place] [id number] Ana Dooley, PA [address] [place] [address] [facility] Start: 10-15-2023 End: 10-15-2023 Patient encounter procedure 10/15/2023 8:30 AM EST Office Visit [facility] [address] [place] [id number] Melissa Cao DO [address] [place] [address] [facility] Start: 09-09-2023 Screening for malign ant neoplasm of cervix [facility] Start: 11-15-2022 End: 11-15-2022 Patient encounter procedure 11/15/2022 Office Visit Primary Care Kaleigh Sanches, FAST BRIM POUNCER - OUTSIDE SALES INSPECTOR [address] [place] [address] [facility] [place] Start: 11-14-2022 COVID-19 Vaccine (#1) COVID-19 Vacci ne (#1) [facility] Comment on above: Postponed from 10/17 (Not Indicated) Start: 11-14-2022 COVID-19 Vaccine (1) COVID-19 Vaccin e (1) [facility] Comment on above: Postponed from 04/16 (Not Indicated) Start: 11-14-2022 Depression Monitoring Depression [facility] [employer] [facility] Start: 11-14-2022 Depression Screen Depression Screen [facility] [employer] [facility] Start: 11-14-2022 Hepatitis C screening Hepatitis C sc [facility] Comment on above: Postponed from 04/16 (Patient Refused) Start: 11-14-2022 HIV screening HIV screen [facility] Comment on above: Postponed from 04/16 (Patient Refused) Start: 11-14-2022 Influenza vaccination Flu vacc ine (Season Ended) [facility] Comment on above: Postponed from 04/20 (Patient Refused) Start: 09-08-2022 Screening for malign ant neoplasm of cervix Cervical cancer screen [place], [place] Start: 03-20-2022 Influenza vaccination Flu vaccine (# 1) [facility] Start: 08-15-2021 Cervical cancer screen Cervical canc er screen [facility] [employer] Work Phone: Start: 04-20-2021 Influenza vaccination Flu vaccine (# 1) [facility] [employer] Start: 04-20-2020 Influenza vaccination Flu vaccine (# 1) [place], [place] Start: 2020 Lipid panel Lipid screen [facility] Start: 04-20-2019 Influenza vaccination Flu vaccine (# 1) [facility] [employer] Work Phone: Start: 12-19-2018 A1C test (Diabetic o r Prediabetic) A1C test (Diabetic or Prediabetic) [facility] [employer] Work Phone: Start: 12-19-2018 Creatinine measurement Creatinine mo nitoring [facility] Start: 12-19-2018 Creatinine monitoring Creatinine mon itoring [facility] [employer] Work Phone: Start: 12-19-2018 HbA1c (Bld) [Mass fraction] A1C test (Diabetic or Prediabetic) [place], [place] Start: 12-19-2018 Hemoglobin A1c measurement A1C test (Diabetic or Prediabetic) [facility] [employer] Start: 12-19-2018 Potassium monitoring Potassium monit oring [facility] [employer] Start: 2010 Screening for malign ant neoplasm of cervix HPV (without or with Pap) [facility] Start: 1995 HIV screen HIV screen [facility] Work Phone: Start: 1995 HIV screening HIV screen [facility] Start: 1985 COVID-19 Vaccine (1) COVID-19 Vaccin e (1) [facility] Start: 1981 Varicella vaccine (1 of 2 - 2-dose childhood series) Varicella vaccine (1 of 2 - 2-dose childhood series) [facility] Start: 1980 Hepatitis C screening Hepatitis C sc reen [facility] End: 07-07-2021 COVID-19 [employer] Phone: Comment on above: 1 Occurrences starti ng 07/07/2021 until 07/07/2021 End: 09-09-2020 Cytopathology procedure, preparation of smear, genital source [facility] Lab Routine Encounter for annual routine gynecological examination 1 Occurrences starting 09/09/2020 until 09/09/2020 [employer] [place] Comment on above: 1 Occurrences starti ng 09/09/2020 until 09/09/2020 End: 09-08-2019 Cytopathology procedure, preparation of smear, genital source [facility] Lab Routine Women's annual routine gynecological examination 1 Occurrences starting 09/08/2019 until 09/08/2019 [employer] Phone: Comment on above: 1 Occurrences starti ng 09/08/2019 until 09/08/2019 End: 10-12-2022 Cytopathology procedure, preparation of smear, genital source [facility] Lab Routine Women's annual routine gynecological examination 1 Occurrences starting 10/12/2022 until 10/12/2022 [facility] [employer] Work Phone: Comment on above: 1 Occurrences starti ng 10/12/2022 until 10/12/2022 Immunizations Immunization Date Immunization Notes Care Provider Emmanuel sosa 08-03-2015 tetanus toxoid, redu hollie diphtheria toxoid, and acellular pertussis vaccine, adsorbed Javier Dawson MD Work Phone: [employer] 06-09-2009 novel influenza-H1N1 -09, preservative-free, injectable [facility] Payers Date Payer Category Payer [facility] [id number] 2021 Unknown BCBS BCBS xxxxxx [id number] 2021-Present [phone] [address] [place] [address] [id number] 2016 Unknown [employer] [address] xxxxxxxxxxxx 2016-Present [phone] [address] [place] [address] xxxxxxxxxxxx [id number] 1980 Unknown [id number] 1980 Unknown [id number] 593 1980 Unknown [id number] 593 1980 Unknown [id number] 173 1980 Unknown [id number] 173 1980 Unknown [id number] 1259 1980 Unknown [id number]. 1259 1980 Unknown [id number] 1259 1959 Unknown [id number] Social History Date Type Detail Facility Start: 06-13-2017 End: 09-09-2020 Tobacco smoking status OKIS Never smoker [employer] Phone: Start: 09-09-2020 End: 10-16-2023 Tobacco use and exposure Never used [employer] [place], [place] Start: 09-09-2020 End: 10-12-2022 Alcohol intake Current drinker of alcohol (finding) [employer] Phone: Start: 1980 Sex Assigned At Not on file [facility] [employer] Phone: Start: 1980 Sex Assigned At Female M [employer] Start: 09-25-2023 End: 10-16-2023 Tobacco smoking status [...] on 07/09/[address] Cao at [facility]. MEDICATIONS Current Outpatient Medications Medication Instructions [...] nursing note reviewed. Exam conducted with a prosthetic aide present. Vitals: Estimated body mass index is [...] reviewed, and patient is to proceed to [facility] OR. Patient voiced that wound dressing STUCK [...] Melissa Cao DO documented in this encounter [facility] Clinical Note 12-15-2022 Note Date & Type Note Facility 12-15-2022 Note OPERATIVE NOTE OPERATION DATE: 12/15/2022 PROCEDURE: Clarisa endometrial ablation with robotic assisted laparoscopic bilateral salpingectomy with left ovarian cystectomy, lysis of abdominal of omental adhesions from the anterior abdominal wall. PREOPERATIVE DIAGNOSIS: Desires permanent sterilization, menorrhagia, multiparity. POSTOPERATIVE DIAGNOSIS: Desires permanent sterilization, menorrhagia, multiparity. ANESTHESIA: General. SURGEON: Melissa Cao D.O. NOC TECHNICIAN: KRISTIE Farmer URINE OUTPUT: Yellow and clear. [...] and needle counts were correct x2. [facility] Clinical Note 12-15-2022 Note Date & [...] Sealer. Again, excellent hemostasis was assured. [facility] Evaluation note Note Date & Type Note Facility Evaluation note Diagnosis Pharyngitis, unspecified etiology Bronchitis Bronchitis, not specified as acute or chronic documented in this encounter [employer] Phone: Evaluation note Note Date & Type Note Facility Evaluation note Diagnosis Women's annual routine gynecological examination documented in this encounter [employer] Phone: Evaluation note Note Date & Type Note Facility Evaluation note Diagnosis Encounter for screening mammogram for breast cancer documented in this encounter [employer] Phone: Evaluation note Note Date & Type Note Facility Evaluation note Diagnosis Women's annual routine gynecological examination documented in this encounter [facility] [employer] Phone: Evaluation note Note Date & Type Note Facility Evaluation note Diagnosis Pre-op examination Menorrhagia with regular cycle Pelvic pain in female Unspecified symptom associated with female genital organs Dyspareunia in female Dysmenorrhea documented in this encounter [facility] Diagnosis Encounter for annual routine gynecological examination Diagnosis Screening mammogram, encounter for Advance Directives Documents on File Type Date Recorded Patient Store Director Expl anation ACP-Advance Directive ACP-Power of Bomb Squad Commander Documents on File Type Date Recorded Patient Store Director Expl anation ACP-Advance Directive ACP-Power of Bomb Squad Commander Documents on File Type Date Recorded Patient Store Director Expl anation Advance Directives and Living Will Power of Bomb Squad Commander Healthcare Agents on File Name Relationship Healthcare Agent Relationshi p Communication David Gaitan Spouse Primary Decision Maker Healthcare Agents on File Name Relationship Healthcare Agent Relationshi p Communication David Gaitan Spouse Primary Decision Maker Reason for Referral Specialty Diagnoses / Procedures Referred By Poly hernandez Referred To Contact Radiology Diagnoses Encounter for screening mammogram for breast cancer Procedures EDWARD SHARAD DIGITAL SCREEN BILATERAL Rahul Damon MD [address] [place] [address] [address] [place] [address] Referral ID Status Reason Start Date Expiration Date V isits Requested Visits Authorized [id number] Pending Review 11/03/2021 11/03/2022 1 1 Summary [...] OR WO CAD BILATERAL Rahul Damon MD [address] [place] [address] [address] [place] [address] [facility] [place] [address] [place] [address] Specialty Diagnoses / Procedures Referred By Poly hernandez Referred To Contact Radiology Diagnoses Encounter for screening mammogram for breast cancer Procedures EDWARD SHARAD DIGITAL SCREEN BILATERAL Rahul Damon MD [address] [place] [address] [address] [place] [address] Referral ID Status Reason Start Date Expiration Date V isits Requested Visits Authorized [id number] Pending Review 11/03/2021 11/03/2022 1 1 Reason Comments Pre-op Visit Care Teams (unrecognized sec tion and content) Enamel Buffer Relationship Specialty Start Date End Date Kaleigh Sanches APRN - OUTSIDE SALES INSPECTOR [address] [place] [address] PCP - General Family Nurse Practitioner 11/14/21 Enamel [employer] Relationship Specialty Start Date End Date Kaleigh Sanches APRN - OUTSIDE SALES INSPECTOR [address] [place] [address] PCP - General Family Nurse Practitioner 11/14/21 INFORMATION SOURCE (unrecogn ized section and content) DATE CREATED AUTHOR 01/29/2023 [facility] DATE CREATED AUTHOR AUTHOR'S ORGANIZ ATION 04/29/2023 [facility] DATE CREATED AUTHOR AUTHOR'S ORGANIZ ATION 06/10/2024 [facility] dical Specialists [facility] FOR RECORDS PERTAINING TO PATIENTS WHO ARE [...] BE BASED ON THE PRIMARY CLINICAL RECORDS. [employer] provides no warranty or guarantee of the accuracy or completeness of information in this document.
[2024-07-09 06:27] LABS: Basophils Absolute Auto 0.1 10^3/uL (0.0-0.1); Basophils Percent Auto 0.8 % (0.2-2.0); Eosinophils Absolute Auto 0.3 10^3/uL (0.0-0.7); Eosinophils Percent Auto 2.9 % (0.9-7.0); Hematocrit 41.9 % (36.0-48.0); Hemoglobin 13.9 g/dL (12.0-16.0); Immature Granulocytes Pct Auto 0.9 % (0.0-0.5); Lymphocytes Absolute Auto 2.9 10^3/uL (1.2-3.8); Lymphocytes Percent Auto 27.1 % (20.5-60.0); Mean Corpuscular HGB Conc 33.2 g/dL (29.9-35.2); Mean Corpuscular Hemoglobin 29.1 pg (26.7-34.0); Mean Corpuscular Volume 87.7 fL (81.0-99.0); Mean Platelet Volume 10.6 fL (9.5-13.5); Monocytes Absolute Auto 0.9 10^3/uL (0.3-0.8); Monocytes Percent Auto 8.3 % (1.7-12.0); Neutrophils Absolute Auto 6.5 10^3/uL (1.4-6.5); Platelet Count 283 10^3/uL (150-450); Red Blood Count 4.78 10^6/uL (4.20-5.40); Red Cell Distribution Width 12.5 % (11.0-15.0); White Blood Count 10.8 10^3/uL (4.0-11.0)
[2024-07-09] MEDS: LACTATED RINGER'S SOLUTION 1,000 ML 50 ML IV ×2 (06:57→09:46)
[2024-07-09 07:22] LABS: HCG Quantitative <1 mIU/mL
[2024-07-09] MEDS: CEFAZOLIN SODIUM 2 GM/50 ML D5W PREMIX IV (07:36)
--- NOTE | 2024-07-09 09:54 | P.ON_ITS ---
Brief Operative Note Date of procedure: 07/09/24 Pre-op diagnosis general: aub, pelvic pain, dysmenorrhea, failed ablation, dys pareunia Post-op diagnosis: same as pre-op Procedure: NAME OF PROCEDURE: ? Robotic assisted laparoscopic hysterectomy with cystoscopy PROCEDURE:? The patient was taken back to the operating room, where she was prepped and draped in the normal sterile fashion after being placed in the dorsal lithotomy position.? Patient?s anesthesia was found to be adequate.? Surgical timeout was performed using two patient identifiers.? SCDs were on and in place.? Two grams of Ancef were given prior to the surgery.? Sterile Muñoz catheter was inserted.? Standard size VCare was secured to the uterine cervix and the surgeon changed gloves.? Attention then was turned to the patient's abdomen, where a supraumbilical incision was then made.? Two S retractors were used to identify the patient?s fascia.? The fascia was then tented up using Cora clamps and the patient?s fascia was incised sharply.? Patient?s abdomen was identified and entered bluntly.? The patient had the trocar placed and a pneumoperitoneum was obtained.? Approximately 4 liters of CO2 gas was used.? The camera was then placed through the trocar.? At this time, two robot trocars were placed in the patient?s left and right side, two hand widths from the midline, and this was placed under direct visualization.? Please note absent tubes were seen. The uterine ovarian ligament was identified and transected and ligated using the vessel sealer? The vessel sealer was carried down serially to the broad ligament, to the area of the bladder flap, which was then created anteriorly, and the uterine arteries were skeletonized and sealed using the vessel sealer.? The colpotomy was made using the monopolar cautery on cut, and this was carried circumferentially, posteriorly to anteriorly, until the uterus was amputated.? The specimen was then removed intact through the vagina, without difficulty.? The vagina was then closed using two running V-Loc in a non-lock fashion.? The robot was undocked.? The abdomen was desufflated.? The skin defects were closed using 4-0 Vicryl.? Please note, the fascia was closed using 0 Vicryl.? Sponge, lap and needle counts were correct x2.? Patient was taken to recovery room in stable condition.? The patient was awakened by Anesthesia first.? Patient tolerated procedure well.?? Anesthesia: YURIYA Surgeon: Norm Cao Engineer [employer]: Herminia Aquino Estimated blood loss (mL): 200 Pathology: other (uterus and cervix) Condition: stable Disposition: PACU Urinary Catheter Management Urinary Catheter Management Urethral: Cath placed during this visit: no
[2024-07-09] MEDS: ONDANSETRON PF 4 MG/2 ML VIAL IV (11:49)
[2024-07-09] MEDS: CEFAZOLIN SODIUM/DEXTROSE,ISO 2 GM/50 ML PIGGYBACK IV (13:30)
[2024-07-09] MEDS: KETOROLAC TROMETHAMINE 30 MG/ML VIAL IVP (15:46)
[2024-07-09 16:12] LABS: Basophils Absolute Auto 0.1 10^3/uL (0.0-0.1); Basophils Percent Auto 0.3 % (0.2-2.0); Eosinophils Percent Auto 0.1 % (0.9-7.0); Hematocrit 39.3 % (36.0-48.0); Immature Granulocytes Abs Auto 0.13 10^3/uL (0.00-0.03); Immature Granulocytes Pct Auto 0.7 % (0.0-0.5); Lymphocytes Absolute Auto 1.1 10^3/uL (1.2-3.8); Lymphocytes Percent Auto 5.9 % (20.5-60.0); Mean Corpuscular HGB Conc 33.1 g/dL (29.9-35.2); Mean Corpuscular Hemoglobin 29.2 pg (26.7-34.0); Mean Corpuscular Volume 88.3 fL (81.0-99.0); Mean Platelet Volume 10.4 fL (9.5-13.5); Monocytes Absolute Auto 0.2 10^3/uL (0.3-0.8); Neutrophils Absolute Auto 16.7 10^3/uL (1.4-6.5); Platelet Count 280 10^3/uL (150-450); Red Blood Count 4.45 10^6/uL (4.20-5.40); Red Cell Distribution Width 12.5 % (11.0-15.0); White Blood Count 18.1 10^3/uL (4.0-11.0)
== END 2024-07-09 17:25 | disposition home or self-care (01) ==
LOC: SURGOUT 10:02 → MS 10:57
PROVIDERS: Visit Provider Obstetrics & Gynecology
PROC: (CPT 944; principal; 2024-07-09 07:30)
DX: N93.9 Abnormal uterine and vaginal bleeding, unspecified (principal); R10.2 Pelvic and perineal pain; N94.6 Dysmenorrhea, unspecified; N94.10 Unspecified dyspareunia; Z98.890 Other specified postprocedural states; N80.03 Adenomyosis of the uterus; D25.9 Leiomyoma of uterus, unspecified
CPT/HCPCS: 58550; 36415; 84702; 85025; 88307; 94667; J0131; J0690; J1100; J1171; J1885; J2250; J2405; J2704; J3010